=== PATIENT | female | born 1970 | race Caucasian/White ===

== ENCOUNTER 2016-10-30 20:00 | Inpatient (IN) | payer SELFPAY ==
[2016-10-30] MEDS ORDERED: Aplisol ID ONE (20:39)
[2016-10-30] MEDS ORDERED: CLINDAMYCIN-D5W 900 MG/50 ML*** 50 ML IV ONE ×2 (20:40→20:58)
--- NOTE | 2016-10-30 20:42 | ERPHSYRPT ---
- History of Present Illness Time Seen by Provider: 10/30/16 20:19 Source: patient Exam Limitations: no limitations Patient Subjective Stated Complaint: states that she has been on 3 courses of antibiotics et steriods with a dental extraction, also dx of Major - states that she feels like her lymph nodes are still swollen on the left side of the neck et has noticed in the last 3 days that her left leg has been swelling and turning red - denies any pain but noticed an increase after working on her feet today for the last 9 hours Triage Nursing Assessment: ambulatory to treatment area - steady gait - moves all extremities with equal strength. alert/oriented - pleasant affect. skin pwd - notable redness et swelling of the LLE. resps easy - non-labored Physician History: FOR THE PAST 2 MONTHS PT HAS HAD SWELLING OF THE LEFT SIDE OF HER NECK AND HAS BEEN ON ANTIBIOTICS AND STEROIDS FOR THIS, LAST ANTIBIOTIC ZITHROMAX WITH LAST DOSE 2 WEEKS AGO. PT ALSO C/O SWELLING AND REDNESS OF THE LEFT THIGH FOR THE PAST 3 DAYS WITH PAIN IN THE LEFT UPPER THIGH. YESTERDAY PT NOTICED A BRUISE ON THE MID LATERAL ASPECT OF HER LEFT THIGH AND TODAY PT HAS HAD A BI-TEMPORAL HEADACHE. Allergies/Adverse Reactions: No Known Drug Allergies Allergy (Unverified 10/30/16 20:10) Home Medications: No Reportable Medications [No Reported Medications] 10/30/16 [History] Hx Tetanus, Diphtheria Vaccination/Date Given: Yes Hx Influenza Vaccination/Date Given: No Hx Pneumococcal Vaccination/Date Given: No Immunizations Up to Date: Yes - Review of Systems Constitutional: No Fever Ears, Nose, & Throat: Other (SWOLLEN GLANDS ON LEFT SIDE OF NECK), No Throat Pain Respiratory: No Dyspnea Cardiac: No Chest Pain Abdominal/Gastrointestinal: No Abdominal Pain, No Vomiting Genitourinary Symptoms: No Dysuria Musculoskeletal: Back Pain (MILD INTERMITTENT LOW BACK PAIN FOR YEARS.), Other ( LEFT THIGH SWELLING AND REDNESS) Skin: Other (BRUISE LEFT THIGH) Neurological: Headache All Other Systems: Reviewed and Negative - Past Medical History Pertinent Past Medical History: No - Past Surgical History Past Surgical History: Yes Gastrointestinal: Cholecystectomy Female Surgical History: Tubal Ligation - Social History Smoking Status: Never smoker Exposure to second hand smoke: No Drug Use: none Patient Lives Alone: No - Female History Hx Last Menstrual Period: 2.5 weeks - Nursing Vital Signs Nursing Vital Signs: Initial Vital Signs Pulse Rate 84 Respiratory Rate 18 Blood Pressure [] 127/81 Pain Intensity 0 - Physical Exam General Appearance: alert Eye Exam: PERRL/EOMI Ears, Nose, Throat Exam: moist mucous membranes, other (TONSILS INJECTED) Neck Exam: full range of motion, lymphadenopathy (0.5 - 1.5 CM DIAMETER LYMPH NODES OVER ANTERIOR AND LEFT>RIGHT SIDE OF NECK.) Respiratory Exam: normal breath sounds, lungs clear Cardiovascular Exam: normal heart sounds Gastrointestinal/Abdomen Exam: soft, normal bowel sounds Back Exam: normal range of motion Extremity Exam: swelling (LEFT THIGH>LEFT LEG EDEMA; MILD ERYTHEMA OF LEFT THIGH ; ~ 2CM X 1CM INDURATION OVER UPPER ANTERIOMEDIAL ASPECT OF LEFT THIGH WITH MILD TENDERNESS.) Neurologic Exam: alert, cooperative SpO2 Interpretation: normal SpO2: 99 Oxygen Delivery: Room Air - Course Nursing assessment & vital signs reviewed: Yes - Radiology Ultrasound Exam Left Venous Lower Extremity Ultrasound: Other (TECH REPORT: NO DVT) Ordered Tests: Active Orders 24 hr Category Date Time Status Clean Catch Urine Specimen STAT Care 10/30/16 20:34 Active IV Insertion STAT Care 10/30/16 20:34 Active VENOUS UNILAT/LIMITED EXTREMIT [US] Stat Exams 10/30/16 20:42 Taken AMYLASE Stat Lab 10/30/16 20:50 Completed BLOOD CULTURE Stat Lab 10/30/16 21:00 Received CBC W DIFF Stat Lab 10/30/16 20:50 Completed CMP Stat Lab 10/30/16 20:50 Completed CULTURE, THROAT Stat Lab 10/30/16 21:00 Received Erythrocyte Sedimentation Rate Stat Lab 10/30/16 20:50 Completed HCG QUALITATIVE,SERUM Stat Lab 10/30/16 20:50 Completed LIPASE Stat Lab 10/30/16 20:50 Completed Lactic Acid Urgent Lab 10/30/16 20:34 Completed Major Screen Stat Lab 10/30/16 20:50 Completed STREP SCREEN-BETA A Stat Lab 10/30/16 21:00 Completed UA W/ MICROSCOPIC Stat Lab 10/30/16 21:00 Completed Medication Summary Generic Name Dose Route Start Last Admin Trade Name Freq PRN Reason Stop Dose Admin Sodium Chloride 1,000 mls @ 100 mls/hr 10/30/16 20:45 10/30/16 21:05 Sodium Chloride 0.9% 1000 Ml IV 11/29/16 20:44 100 mls/hr .Q10H JONO Administration Discontinued Medications Generic Name Dose Route Start Last Admin Trade Name Rickyq PRN Reason Stop Dose Admin Clindamycin HCl/Dextrose 50 mls @ 100 mls/hr 10/30/16 20:40 10/30/16 21:04 Clindamycin-D5w 900 Mg/50 Ml IV 10/30/16 21:09 100 mls/hr STAT ONE Administration Clindamycin HCl/Dextrose Confirm 10/30/16 20:58 Clindamycin-D5w 900 Mg/50 Ml Administered 10/30/16 20:59 Dose 50 mls @ ud IV .STK-MED ONE Clindamycin HCl/Dextrose Confirm 10/30/16 21:04 Clindamycin-D5w 900 Mg/50 Ml Administered 10/30/16 21:05 Dose 50 mls @ ud IV .STK-MED ONE Tuberculin PPD 5 unit 10/30/16 20:39 10/30/16 20:49 Aplisol ID 10/30/16 20:40 5 unit STAT ONE Administration Lab/Rad Data: Laboratory Result Diagrams 10/30/16 20:50 10/30/16 20:50 Laboratory Results 10/30/16 10/30/16 10/30/16 Range/Units 21:00 21:00 21:00 WBC (4.0-10.5) K/mm3 RBC (4.1-5.4) M/mm3 Hgb (12.0-16.0) gm/dl Hct (35-47) % MCV (78-100) fl MCH (26-32) pg MCHC (32-36) g/dl RDW (11.5-14.0) % Plt Count (150-450) K/mm3 MPV (6-9.5) fl Gran % (36.0-66.0) % Lymphocytes % (24.0-44.0) % Monocytes % (0.0-12.0) % Eosinophils % (0.00-5.0) % Basophils % (0.0-0.4) % Basophils # (0-0.4) ESR (0-20) mm/hr Sodium (136-145) mEq/L Potassium (3.5-5.1) mEq/L Chloride (98-107) mEq/L Carbon Dioxide (21-32) mEq/L Anion Gap (5-15) MEQ/L BUN (9-20) mg/dL Creatinine (0.55-1.30) mg/dl Estimated GFR ML/MIN Glucose (70-110) MG/DL Lactic Acid (0.4-2.0) Calcium (8.5-10.1) mg/dL Total Bilirubin (0.2-1.0) mg/dL AST (15-37) U/L ALT (12-78) U/L Alkaline Phosphatase (46-116) U/L Serum Total Protein (6.4-8.2) gm/dL Albumin (3.4-5.0) g/dL Amylase (25-115) U/L Lipase (73-393) U/L Serum , Qual (Negative) Ur Collection Type CLEAN CATCH Urine Color YELLOW (YELLOW) Urine Appearance CLEAR (CLEAR) Urine pH 5.5 (5-6) Ur Specific [place] 1.025 (1.005-1.025) Urine Protein NEGATIVE (Negative) Urine Glucose (UA) NEGATIVE (NEGATIVE) mg/dL Urine Ketones TRACE (NEGATIVE) Urine Nitrite NEGATIVE (NEGATIVE) Urine Bilirubin NEGATIVE (NEGATIVE) Urine Urobilinogen 0.2 (0-1) mg/dL Urine WBC (Auto) NEGATIVE (NEGATIVE) Urine RBC (Auto) TRACE NON-HEM (0-5) Emerson/ul Urine Microscopic RBC 0-2 (0-2) /HPF Ur Epithelial Cells FEW (FEW) /HPF Urine Bacteria RARE (NEGATIVE) /HPF Monoscreen (Negative) Influenza Type A Ag NEGATIVE (NEGATIVE) Influenza Type B Ag NEGATIVE (NEGATIVE) RSV (PCR) NEGATIVE (Negative) Streptococcus Screen NEGATIVE (Negative) Specimen Received 10/30/16:210910/30/16 10/30/16 10/30/16 Range/Units 20:50 20:50 20:50 WBC (4.0-10.5) K/mm3 RBC (4.1-5.4) M/mm3 Hgb (12.0-16.0) gm/dl Hct (35-47) % MCV (78-100) fl MCH (26-32) pg MCHC (32-36) g/dl RDW (11.5-14.0) % Plt Count (150-450) K/mm3 MPV (6-9.5) fl Gran % (36.0-66.0) % Lymphocytes % (24.0-44.0) % Monocytes % (0.0-12.0) % Eosinophils % (0.00-5.0) % Basophils % (0.0-0.4) % Basophils # (0-0.4) ESR 17 (0-20) mm/hr Sodium 140 (136-145) mEq/L Potassium 3.7 (3.5-5.1) mEq/L Chloride 103 (98-107) mEq/L Carbon Dioxide 25.2 (21-32) mEq/L Anion Gap 15.5 H (5-15) MEQ/L BUN 11 (9-20) mg/dL Creatinine 0.90 (0.55-1.30) mg/dl Estimated GFR > 60 ML/MIN Glucose 88 (70-110) MG/DL Lactic Acid (0.4-2.0) Calcium 8.8 (8.5-10.1) mg/dL Total Bilirubin 0.5 (0.2-1.0) mg/dL AST 17 (15-37) U/L ALT 15 (12-78) U/L Alkaline Phosphatase 75 (46-116) U/L Serum Total Protein 7.2 (6.4-8.2) gm/dL Albumin 3.7 (3.4-5.0) g/dL Amylase 20 L (25-115) U/L Lipase 84 (73-393) U/L Serum , Qual NEGATIVE (Negative) Ur Collection Type Urine Color (YELLOW) Urine Appearance (CLEAR) Urine pH (5-6) Ur Specific [place] (1.005-1.025) Urine Protein (Negative) Urine Glucose (UA) (NEGATIVE) mg/dL Urine Ketones (NEGATIVE) Urine Nitrite (NEGATIVE) Urine Bilirubin (NEGATIVE) Urine Urobilinogen (0-1) mg/dL Urine WBC (Auto) (NEGATIVE) Urine RBC (Auto) (0-5) Emerson/ul Urine Microscopic RBC (0-2) /HPF Ur Epithelial Cells (FEW) /HPF Urine Bacteria (NEGATIVE) /HPF Monoscreen POSITIVE (Negative) Influenza Type A Ag (NEGATIVE) Influenza Type B Ag (NEGATIVE) RSV (PCR) (Negative) Streptococcus Screen (Negative) Specimen Received 10/30/16 10/30/16 Range/Units 20:50 20:34 WBC 10.1 (4.0-10.5) K/mm3 RBC 4.49 (4.1-5.4) M/mm3 Hgb 10.5 L (12.0-16.0) gm/dl Hct 34.2 L (35-47) % MCV 76.2 L (78-100) fl MCH 23.3 L (26-32) pg MCHC 30.7 L (32-36) g/dl RDW 19.3 H (11.5-14.0) % Plt Count 190 (150-450) K/mm3 MPV 9.7 H (6-9.5) fl Gran % 74.0 H (36.0-66.0) % Lymphocytes % 12.1 L (24.0-44.0) % Monocytes % 8.7 (0.0-12.0) % Eosinophils % 4.9 (0.00-5.0) % Basophils % 0.3 (0.0-0.4) % Basophils # 0.03 (0-0.4) ESR (0-20) mm/hr Sodium (136-145) mEq/L Potassium (3.5-5.1) mEq/L Chloride (98-107) mEq/L Carbon Dioxide (21-32) mEq/L Anion Gap (5-15) MEQ/L BUN (9-20) mg/dL Creatinine (0.55-1.30) mg/dl Estimated GFR ML/MIN Glucose (70-110) MG/DL Lactic Acid 0.9 (0.4-2.0) Calcium (8.5-10.1) mg/dL Total Bilirubin (0.2-1.0) mg/dL AST (15-37) U/L ALT (12-78) U/L Alkaline Phosphatase (46-116) U/L Serum Total Protein (6.4-8.2) gm/dL Albumin (3.4-5.0) g/dL Amylase (25-115) U/L Lipase (73-393) U/L Serum , Qual (Negative) Ur Collection Type Urine Color (YELLOW) Urine Appearance (CLEAR) Urine pH (5-6) Ur Specific [place] (1.005-1.025) Urine Protein (Negative) Urine Glucose (UA) (NEGATIVE) mg/dL Urine Ketones (NEGATIVE) Urine Nitrite (NEGATIVE) Urine Bilirubin (NEGATIVE) Urine Urobilinogen (0-1) mg/dL Urine WBC (Auto) (NEGATIVE) Urine RBC (Auto) (0-5) Emerson/ul Urine Microscopic RBC (0-2) /HPF Ur Epithelial Cells (FEW) /HPF Urine Bacteria (NEGATIVE) /HPF Monoscreen (Negative) Influenza Type A Ag (NEGATIVE) Influenza Type B Ag (NEGATIVE) RSV (PCR) (Negative) Streptococcus Screen (Negative) Specimen Received - Progress Discussed with : Alvarado (OBS - [id number]) - Departure Time of Disposition: 22:38 Departure Disposition: Observation Clinical Impression: CELLULITIS OF THE LEFT THIGH, LYMPHADENITIS, INFECTIOUS MONONUCLEOSIS, TONSILLITIS Condition: Stable Critical Care Time: No Referrals: SHANE GUTIERREZ [Primary Care Provider] -
[2016-10-30] MEDS ORDERED: Sodium Chloride 0.9% 1000 ML 1,000 ML IV SCH (20:45)
[2016-10-30] MEDS ORDERED: Sodium Chloride 0.9% 1000 ML 1,000 ML ONE (20:58)
[2016-10-30] MEDS ORDERED: [UNRECOGNIZED DRUG - OTHER] IV ONE (21:04)
[2016-10-30] MEDS ORDERED: Sodium Chloride 0.9% 1000 ML 0 ML ONE (21:04)
[2016-10-30 21:12] LABS: BASOPHIL % 0.3 % (0.0-0.4); Eosinophil % 4.9 % (0.00-5.0); Lymphocytes % 12.1 % (24.0-44.0); Mean Cell Volume 76.2 fl (78-100); Mean Platelet Volume 9.7 fl (6-9.5); Monocytes % 8.7 % (0.0-12.0); Platelet Count 190 K/mm3 (150-450); Red Blood Count 4.49 M/mm3 (4.1-5.4); Red Cell Distribution Width 19.3 % (11.5-14.0); White Blood Count 10.1 K/mm3 (4.0-10.5)
[2016-10-30 21:23] LABS: Mean Corpuscular Hemoglobin 23.3 pg (26-32)
[2016-10-30 21:31] LABS: Bacteria RARE /HPF (NEGATIVE); COMPLETE URINE MICROSCOPIC? YES; Collection Type CLEAN CATCH; Epithelial Cells FEW /HPF (FEW); Ph 5.5 (5-6)
[2016-10-30 21:33] LABS: ALBUMIN 3.7 g/dL (3.4-5.0); ALKALINE PHOSPHATASE 75 U/L (46-116); ANION GAP 15.5 MEQ/L (5-15); BILIRUBIN,TOTAL 0.5 mg/dL (0.2-1.0); BLOOD UREA NITROGEN 11 mg/dL (9-20); CHLORIDE 103 mEq/L (98-107); Carbon Dioxide 25.2 mEq/L (21-32); Glucose 88 MG/DL (70-110); LIPASE 84 U/L (73-393); Potassium 3.7 mEq/L (3.5-5.1); SGOT/AST 17 U/L (15-37); SGPT/ALT 15 U/L (12-78); SODIUM 140 mEq/L (136-145); Total Protein 7.2 gm/dL (6.4-8.2)
[2016-10-31] MEDS: Cleocin Phosphate IV 600 MG/4 ML IV SCH ×2 (00:50→05:39)
[2016-10-31] MEDS ORDERED: CLINDAMYCIN-D5W 600 MG/50 ML*** 50 ML IV ONE ×2 (00:50→05:05)
[2016-10-31] MEDS: Sodium Chloride 0.9% 1000 ML 1,000 ML IV SCH (03:11)
[2016-10-31 05:55] LABS: Mean Cell Volume 77.5 fl (78-100); Mean Corpuscular Hemoglobin 23.4 pg (26-32); Mean Platelet Volume 9.6 fl (6-9.5); Platelet Count 173 K/mm3 (150-450); Red Blood Count 4.31 M/mm3 (4.1-5.4); Red Cell Distribution Width 19.2 % (11.5-14.0); White Blood Count 8.3 K/mm3 (4.0-10.5)
[2016-10-31] MEDS: Phenergan 25 MG INJ IV PRN (06:00)
[2016-10-31 06:21] LABS: BAND 1 % (0.0-2.0); Eosinophil 3 % (0.00-3.0); Total Cells Counted 100
[2016-10-31 06:22] LABS: ANISOCYTOSIS 1+; Platelet Estimate NORMAL (NORMAL); Toxic Granulation 1+
[2016-10-31 06:28] LABS: ALBUMIN 2.9 g/dL (3.4-5.0); ALKALINE PHOSPHATASE 59 U/L (46-116); BILIRUBIN,TOTAL 0.3 mg/dL (0.2-1.0); BLOOD UREA NITROGEN 13 mg/dL (9-20); CHLORIDE 107 mEq/L (98-107); Carbon Dioxide 26.9 mEq/L (21-32); Glucose 94 MG/DL (70-110); Potassium 3.6 mEq/L (3.5-5.1); SGOT/AST 17 U/L (15-37); SGPT/ALT 14 U/L (12-78); SODIUM 141 mEq/L (136-145)
[2016-10-31] MEDS: DILAUDID 2 MG INJECTION IV PRN ×2 (07:26→21:08)
[2016-10-31] MEDS ORDERED: PHARMACY DOSING REQUIRED: VANCOMYCIN IV ONE (08:20)
[2016-10-31] MEDS: solu-MEDROL 125 MG IV SCH ×3 (08:58→19:18)
[2016-10-31] MEDS: ENOXAPARIN SODIUM SQ SCH (09:00)
--- NOTE | 2016-10-31 09:32 | HP ---
CHIEF COMPLAINT: Left leg swelling. HISTORY OF PRESENT ILLNESS: The patient is a 45 year-old white female who had been diagnosed with mononucleosis about three to four weeks ago. The patient had been treated with five day course of steroids and had been on antibiotics a couple different times. The patient noticed she started having swelling in the left leg about four days ago which has been progressively getting a little bit worse until yesterday when she was at work all day. When she came home there was greater swelling in the leg. She presented herself to the emergency room where leg was found to be swollen, red and somewhat tender. The patient was admitted to the hospital with diagnosis of cellulitis and IV antibiotic treatment. PAST MEDICAL/SURGICAL HISTORY: Again significant for recent mononucleosis. She has history of cholecystectomy, tubal ligation. HOME MEDICATIONS: On no usual medications at home. ALLERGIES: NKDA. PHYSICAL EXAMINATION: Revealed a well nourished, well developed 45 year-old white female in mild to moderate distress currently due to the leg swelling. Her most recent vital signs showed temperature 98.2F, pulse 82, respiratory rate 15, blood pressure 121/53. O2 saturation 97% on room air. HEENT: Normocephalic, atraumatic. Pupils equal round reactive to light. Extraocular movements intact. Oropharynx is pink and moist. NECK: Supple without lymphadenopathy, thyromegaly or JVD. CHEST: Clear to auscultation with good air movement bilaterally. HEART: Regular rate and rhythm without murmurs, rubs or gallops. ABDOMEN: Soft, nontender, nondistended without hepatosplenomegaly or masses. EXTREMITIES: Without clubbing or cyanosis. The patient is noted to have swelling from the crease of thigh all the way to the tips of the toes on the left leg which is minimally reddened compared to the right. There is no significant increase in warmth as well. NEUROLOGIC: The patient is alert and oriented x3 with no focal deficits were noted. LAB DATA AND TESTS: Thus far show a metabolic panel which is essentially normal. She had CBC showing a white blood cell count of 8,300. She has microcytic indices with hemoglobin of 10.1, PLT count 173,000. She has minimal left shift with one band and 76 polys. Sedimentation rate is 17. The patient did have a venous Doppler which was negative for deep venous thrombosis. ASSESSMENT: A patient with mononucleosis and now lymph edema in the left thigh from swollen lymph nodes in left groin area. The patient has been admitted for antibiotic treatment for possibly developing cellulitis. She has been placed on Clindamycin. We will add Vancomycin as well as giving her high dose of steroids to try to help reduce the inflammation in the lymph nodes in the groin area in order to try to help alleviate the swelling in the leg. She is being restricted to bed rest except getting up to bathroom to try to help the lymph edema. I will check the patient's labs in the morning. She has also been placed on Lovenox for deep venous thrombosis prophylaxis.
--- NOTE | 2016-10-31 09:35 | XRAY ---
Indication: Left leg swelling and pain. Two-dimensional sonogram and color Doppler imaging of the major venous vessels of the left leg was performed. Comparison: None No thrombus seen in the examined deep venous vessels of the left leg including greater saphenous vein. Veins demonstrate normal compressibility. Venous waveforms are normal with and without augmentation. There are incidental multiple prominent lymph nodes in the groin and upper thigh, largest 3.7 x 5.7 cm. Impression: Left leg negative for DVT. Incidental inguinal and upper thigh lymphadenopathy of uncertain etiology. Comment: Preliminary report was given.
[2016-10-31] MEDS ORDERED: ENOXAPARIN SODIUM SQ SCH (10:00)
[2016-10-31] MEDS ORDERED: VANCOCIN 1 GM VIAL*** 1.75 GM in Sodium Chloride 0.9% 500 ML 500 ML IV ONE (10:00)
[2016-10-31] MEDS: CLINDAMYCIN-D5W 600 MG/50 ML*** 50 ML IV SCH ×3 (13:33→23:59)
[2016-10-31] MEDS: VANCOCIN 1 GM VIAL*** 1.25 GM in Sodium Chloride 0.9% 250 ML 250 ML IV SCH (21:09)
[2016-11-01] MEDS: Sodium Chloride 0.9% 1000 ML 1,000 ML IV SCH (03:03)
[2016-11-01 05:52] LABS: Mean Cell Volume 76.1 fl (78-100); Mean Corpuscular Hemoglobin 23.2 pg (26-32); Platelet Count 205 K/mm3 (150-450); Red Blood Count 4.56 M/mm3 (4.1-5.4); Red Cell Distribution Width 19.2 % (11.5-14.0); White Blood Count 15.2 K/mm3 (4.0-10.5)
[2016-11-01] MEDS: CLINDAMYCIN-D5W 600 MG/50 ML*** 50 ML IV SCH ×3 (05:56→17:32)
[2016-11-01] MEDS: solu-MEDROL 125 MG IV SCH ×2 (05:57)
[2016-11-01 06:23] LABS: ALBUMIN 3.2 g/dL (3.4-5.0); ALKALINE PHOSPHATASE 67 U/L (46-116); ANION GAP 13.7 MEQ/L (5-15); BILIRUBIN,TOTAL 0.3 mg/dL (0.2-1.0); BLOOD UREA NITROGEN 11 mg/dL (9-20); CHLORIDE 108 mEq/L (98-107); Carbon Dioxide 25.2 mEq/L (21-32); Glucose 145 MG/DL (70-110); Potassium 3.9 mEq/L (3.5-5.1); SGOT/AST 14 U/L (15-37); SGPT/ALT 14 U/L (12-78); SODIUM 143 mEq/L (136-145)
[2016-11-01] MEDS: TYLENOL 325 MG PO PRN ×2 (07:24→19:55)
[2016-11-01] MEDS ORDERED: TORAdol 30 mg Injection IV ONE (08:46)
[2016-11-01] MEDS: Phenergan 25 MG INJ IV PRN ×2 (09:02→17:32)
--- NOTE | 2016-11-01 09:03 | PCM.NOTE ---
Date and Time: 11/01/16856 Subjective Assessment: she is nervous on the high dose steroids and has a headache. she had an infected tooth on the left lower side for several months and had it removed about 1 month ago and has had severe swelling on the left neck for 3 to 4 months with minimal improvement and just developed the left inguinal adenopathy and swelling and pain over the last 1 week and it is improving a little today but tingling feeling in her leg. She has had night sweats and chills for the last few months. denies any alcohol or drug use Objective Exam General Appearance: obese Neurologic Exam: other (anxious tremor bilateral tearful at times) Skin Exam: warm, dry, No petechiae, No jaundice Eye Exam: No scleral icterus, No pale conjunctivae Ears, Nose, Throat Exam: moist mucous membranes Neck Exam: non-tender, supple, other (large firm lymph nodes left anterior cervical chain largest about 4cm area of induration no warmth. the prevous abscessed tooth on left lower mandible is well healed after extraction) Respiratory Exam: normal breath sounds, lungs clear Cardiovascular Exam: regular rate/rhythm, normal heart sounds, No irregular Gastrointestinal/Abdomen Exam: soft, normal bowel sounds, No tenderness Extremity Exam: normal inspection, other (left inguinal large firm warm tender largest about 6cm lypmphadenopathy with distal 2+ pitting edema.) OBJECTIVE DATA Vital Signs: Vital Signs - 24 hr Temp Pulse Resp BP Pulse Ox 11/01/16 07:16 98.1 F 81 18 115/59 96 11/01/16 04:00 98.7 F 84 16 117/61 93 L 10/31/16 23:59 98.1 F 78 17 98/56 92 L 10/31/16 20:00 98.7 F 84 16 119/62 94 L 10/31/16 16:00 98.5 F 80 17 121/71 93 L 10/31/16 12:00 98.2 F 70 18 108/60 96 Pain Assessment - Last Documented Pain Intensity 9 Pain Scale Used 0-10 Pain Scale Intake and Output: Intake & Output 10/29/16 10/30/16 10/31/16 11/01/16 11:59 11:59 11:59 11:59 Intake Total 720 1600 Output Total 1600 Balance 720 0 Weight 85.82 kg 85.774 kg Lab Results: Lab Results-Last 24 Hours 11/01/16 11/01/16 Range/Units 05:12 05:12 WBC 15.2 H (4.0-10.5) K/mm3 RBC 4.56 (4.1-5.4) M/mm3 Hgb 10.6 L (12.0-16.0) gm/dl Hct 34.7 L (35-47) % MCV 76.1 L (78-100) fl MCH 23.2 L (26-32) pg MCHC 30.5 L (32-36) g/dl RDW 19.2 H (11.5-14.0) % Plt Count 205 (150-450) K/mm3 MPV 10.0 H (6-9.5) fl Sodium 143 (136-145) mEq/L Potassium 3.9 (3.5-5.1) mEq/L Chloride 108 H (98-107) mEq/L Carbon Dioxide 25.2 (21-32) mEq/L Anion Gap 13.7 (5-15) MEQ/L BUN 11 (9-20) mg/dL Creatinine 0.84 (0.55-1.30) mg/dl Estimated GFR > 60 ML/MIN Glucose 145 H (70-110) MG/DL Calcium 8.4 L (8.5-10.1) mg/dL Total Bilirubin 0.3 (0.2-1.0) mg/dL AST 14 L (15-37) U/L ALT 14 (12-78) U/L Alkaline Phosphatase 67 (46-116) U/L Serum Total Protein 7.0 (6.4-8.2) gm/dL Albumin 3.2 L (3.4-5.0) g/dL Assessment/Plan (1) Cervical lymphadenopathy Current Visit: Yes Status: Acute Assessment & Plan: concern for lack of improvement over the last 4 months as well as night fevers continue the clinda/vanc for now as seems to be improving however if not showing improvement we discussed with patient surgical consultation for excision biopsy. Code(s): R59.0 - LOCALIZED ENLARGED LYMPH NODES (2) Inguinal lymphadenopathy Current Visit: Yes Status: Acute Code(s): R59.0 - LOCALIZED ENLARGED LYMPH NODES (3) Cellulitis Current Visit: Yes Status: Acute Code(s): L03.90 - CELLULITIS, UNSPECIFIED (4) Headache Current Visit: Yes Status: Acute Assessment & Plan: will give 1 time dose of toradol with phenergan reduce the steroids with the tremors and add famotidine for gi ppx on lovenox for dvt ppx. Code(s): R51 - HEADACHE
[2016-11-01] MEDS: VANCOCIN 1 GM VIAL*** 1.25 GM in Sodium Chloride 0.9% 250 ML 250 ML IV SCH ×2 (10:03→22:14)
[2016-11-01] MEDS: Pepcid 20 MG PO SCH ×2 (10:03→22:14)
[2016-11-01] MEDS: ENOXAPARIN SODIUM SQ SCH (10:03)
[2016-11-01] MEDS: solu-MEDROL 40 MG IV SCH ×2 (11:49→17:33)
[2016-11-01] MEDS ORDERED: TORAdol 30 mg Injection IV PRN (17:22)
[2016-11-01] MEDS: DILAUDID 2 MG INJECTION IV PRN (22:24)
[2016-11-02] MEDS: solu-MEDROL 40 MG IV SCH ×5 (00:03→23:34)
[2016-11-02] MEDS: CLINDAMYCIN-D5W 600 MG/50 ML*** 50 ML IV SCH ×5 (00:03→23:37)
[2016-11-02] MEDS ORDERED: TROUGH DRUG LEVELS IJ ONE (09:30)
[2016-11-02] MEDS: ENOXAPARIN SODIUM SQ SCH (09:35)
[2016-11-02] MEDS: DILAUDID 2 MG INJECTION IV PRN ×2 (09:36→21:32)
[2016-11-02] MEDS: Pepcid 20 MG PO SCH ×2 (09:36→21:37)
[2016-11-02] MEDS: VANCOCIN 1 GM VIAL*** 1.25 GM in Sodium Chloride 0.9% 250 ML 250 ML IV SCH ×2 (09:52→21:33)
--- NOTE | 2016-11-02 10:47 | PCM.NOTE ---
Date and Time: 11/02/16 1043 Subjective Assessment: Feeling better today no headache today she was still having pain in the leg and just had pain medication that is helping swelling is decreaing in the leg no abdominal pain. She feels the lymph nodes are a little smaller and less firm in her neck and groin. She feels a little nervous on the steroids. Objective Exam General Appearance: no apparent distress Neurologic Exam: alert, oriented x 3, cooperative Skin Exam: warm, dry Eye Exam: No scleral icterus, No pale conjunctivae Neck Exam: normal inspection Lymphatic Exam: adenopathy, inguinal node tender (L), other (left anterior cervical large nodes less tender slighly less firm today largest about 4cm left inguinal adenopathy largest about 6cm less tender less firm today), No axilla node tender (L), No axilla node tender (R) Respiratory Exam: normal breath sounds, lungs clear Cardiovascular Exam: regular rate/rhythm, normal heart sounds, No edema Gastrointestinal/Abdomen Exam: soft, normal bowel sounds, No tenderness Extremity Exam: other (left lower extremity edema improved 1+), No sindy's sign OBJECTIVE DATA Vital Signs: Vital Signs - 24 hr Temp Pulse Resp BP Pulse Ox 11/02/16 07:13 98.1 F 69 18 114/58 98 11/02/16 04:00 98.3 F 65 20 107/53 95 11/02/16 00:00 98.3 F 76 20 113/65 96 11/01/16 19:55 98.4 F 85 18 121/73 95 11/01/16 15:58 97.6 F 78 18 132/66 97 11/01/16 11:59 97.8 F 80 20 135/60 97 Pain Assessment - Last Documented Pain Intensity 6 Pain Scale Used 0-10 Pain Scale Intake and Output: Intake & Output 10/30/16 10/31/16 11/01/16 11/02/16 11:59 11:59 11:59 11:59 Intake Total 1720 1320 Output Total 1600 1800 Balance 120 -480 Weight 85.774 kg 86.636 kg Assessment/Plan (1) Cervical lymphadenopathy Current Visit: Yes Status: Acute Assessment & Plan: continue steroids, vanc, clinda for this and inguinal adenopathy discussed surgical excision biopsy if not improving. Code(s): R59.0 - LOCALIZED ENLARGED LYMPH NODES (2) Inguinal lymphadenopathy Current Visit: Yes Status: Acute Code(s): R59.0 - LOCALIZED ENLARGED LYMPH NODES (3) Cellulitis Current Visit: Yes Status: Acute Code(s): L03.90 - CELLULITIS, UNSPECIFIED (4) Headache Current Visit: Yes Status: Acute Code(s): R51 - HEADACHE
[2016-11-03 03:20] LABS: Mycoplasma Pneum.Ab.IgM 0.11 U/L (<=0.76)
[2016-11-03] MEDS ORDERED: CLINDAMYCIN-D5W 600 MG/50 ML*** 50 ML IV ONE (05:35)
[2016-11-03] MEDS: solu-MEDROL 40 MG IV SCH (05:41)
[2016-11-03] MEDS: CLINDAMYCIN-D5W 600 MG/50 ML*** 50 ML IV SCH (05:43)
[2016-11-03 07:36] VITALS: BP 123/70; PULSE 57; O2SAT 96
--- NOTE | 2016-11-03 08:36 | PCM.DCORD ---
- Discharge Discharge Date: 11/03/16 Disposition: Home, Self-Care Condition: Stable Prescriptions: New Clindamycin HCl [Cleocin HCl] 600 mg PO TID #42 capsule Hydrocodone/APAP 10/325 mg [[place] 10/325 MG Tablet] 1 tab PO Q4H PRN PRN #30 tablet PRN Reason: Pain Prednisone 10 mg PO UD #30 tablet Additional Instructions: Please fill your prescriptions and take as directed. You need to rest and activities as tolerated. Please be off work this week and follow up with Dr. Childers in one week. Continue measuring your legs to monitor swelling. Please call immediately if swelling becomes worse or you start running a fever or you feel you have an emergency. Use the prescription pain medication for pain. Follow up with: SHANE CHILDERS [Primary Care Provider] -
[2016-11-03] MEDS: Pepcid 20 MG PO SCH (09:27)
[2016-11-03] MEDS: VANCOCIN 1 GM VIAL*** 1.25 GM in Sodium Chloride 0.9% 250 ML 250 ML IV SCH (09:29)
[2016-11-03] MEDS: ENOXAPARIN SODIUM SQ SCH (09:38)
[2016-11-03] MEDS: DILAUDID 2 MG INJECTION IV PRN (10:17)
--- NOTE | 2016-11-03 13:13 | DS ---
DISCHARGE DIAGNOSES: 1) MONONUCLEOSIS. 2) LYMPHADENOPATHY. 3) LYMPH EDEMA IN THE LEFT LEG. 4) CELLULITIS, LEFT LOWER EXTREMITY. HISTORY: The patient is a 45 year-old white female patient diagnosed with mononucleosis. The patient has been dealing with this for the past couple of weeks. However she noted lymph nodes in the neck and in the groin particularly appeared to be swollen. She began having problems with swelling in the left lower extremity from the groin area downward. It was slightly reddened compared to the other side and slightly warm. The patient was seen in the emergency room and admitted to the hospital with the diagnosis of cellulitis. She was begun on IV Cleocin. HOSPITAL COURSE: The patient was admitted to the hospital [place] on IV Cleocin and IV fluids. We added IV Vancomycin and IV steroids. The patient after being on bed rest appeared much better with decrease in swelling of the leg. We were measuring it at mid-thigh level and it reduced 6 cm in circumference over the ensuing couple of days. The patient's laboratory studies otherwise showed influenza A/B and respiratory syncytial virus to be negative. Lactic acid 0.9. Strep screen was negative. [place] screen was positive. UA was normal. CMP was essentially normal as well with BUN 11, creatinine 0.9. Electrolytes and liver enzymes were normal. Sed rate was 17. She had a white blood cell count 8,300, hemoglobin 10.1, PLT count 173,000. There was 1 band and 76 polys noted. She had venous Doppler performed of left lower extremity which was negative for evidence of deep venous thrombosis. The patient was felt to be ready for discharge home by the morning of 11/03/2016. She was discharged back home on Cleocin 600 mg t.i.d. for a week. She will be placed on prednisone 30 mg a day for five days and 20 for 5 days and then 10 for 5 days. [place] 10/325 mg every four hours PRN for pain. She has follow up in my office in one week. She was instructed that she could be upon the leg a little bit more each day but she is to be off work until she sees me again in the office in one week.
== END 2016-11-03 11:55 | disposition home or self-care (01) | DRG 866 ==
LOC: ED 20:00 → MED SURG 22:50 → OBSVTOIN 10-31 08:30 → INTOOBSV 10-31 08:30 → OBSVTOIN 10-31 08:31
PROVIDERS: ADMIT Family Medicine; ATTEND Family Medicine
DX: B27.90 Infectious mononucleosis, unspecified without complication (principal); L03.116 Cellulitis of left lower limb; R59.0 Localized enlarged lymph nodes; M79.605 Pain in left leg; R51 Headache
CPT/HCPCS: 36000; 36415; 80053; 80202; 81000; 82150; 83605; 83690; 84703; 85025; 85027; 85652; 86308; 86738; 87040; 87070; 87430; 87631; 93971; 96360; 96361; 96365; 99285; G0378; J1170; J1650; J1885; J2550; J2920; J2930; J3370; A9270-GY

== ENCOUNTER 2016-11-28 18:39 | Inpatient (IN) | payer SELFPAY ==
[2016-11-28] MEDS ORDERED: CLINDAMYCIN-D5W 900 MG/50 ML*** 50 ML IV ONE ×2 (21:15→21:24)
[2016-11-28] MEDS ORDERED: Vancomycin 1GM/ Ns 250ML*** 250 ML IV ONE ×2 (21:15→21:25)
[2016-11-28 21:19] LABS: BASOPHIL % 0.4 % (0.0-0.4); Eosinophil % 3.7 % (0.00-5.0); Granulocytes % 74.2 % (36.0-66.0); Lymphocytes % 13.2 % (24.0-44.0); Mean Cell Volume 77.8 fl (78-100); Mean Platelet Volume 9.9 fl (6-9.5); Monocytes % 8.5 % (0.0-12.0); Platelet Count 219 K/mm3 (150-450); Red Cell Distribution Width 18.8 % (11.5-14.0); White Blood Count 7.8 K/mm3 (4.0-10.5)
[2016-11-28 21:22] LABS: Mean Corpuscular Hemoglobin 23.5 pg (26-32)
[2016-11-28] MEDS ORDERED: Sodium Chloride 0.9% 1000 ML 1,000 ML ONE (21:25)
[2016-11-28] MEDS: Sodium Chloride 0.9% 1000 ML 1,000 ML IV SCH (21:31)
--- NOTE | 2016-11-28 21:38 | ERPHSYRPT ---
- History of Present Illness Time Seen by Provider: 11/28/16 19:00 Source: patient, family Exam Limitations: no limitations Patient Subjective Stated Complaint: PT REPORTS SWELLING-REDNESS ET PAIN TO LEFT LEG-STATES THAT SHE HAD A SIMILAR EPISODE DX WITH CELLULITIS ET LYMPHADEMA- FINISHED MEDS [facility]ARRY 5 DAYS AGO Triage Nursing Assessment: PT PINK WARM ET DRY-RESP NONLAOBRED-REDNESS ET SWELLING NOTED TO LEFT UPPER LEG-PEDAL PULSE REGULAR ET STRONG-PT AMBULATORY TO ED ROOM Physician History: Pt. completed course of Vancomycin and Clindamycin 5 days ago for "Staph" infection/cellulitis LLE. She went to work at [employer] today with swelling, erythema of left thigh. Presents with 5 cm knot to left femoral area tonight. Occurred: this afternoon Quality: constant Severity of Pain-Max: severe Severity of Pain-Current: severe Lower Extremities Pain: hip: left, leg: left, thigh: left Modifying Factors: Improves With: movement Allergies/Adverse Reactions: No Known Drug Allergies Allergy (Verified 11/28/16 18:49) Hx Tetanus, Diphtheria Vaccination/Date Given: No Hx Influenza Vaccination/Date Given: No Hx Pneumococcal Vaccination/Date Given: No Immunizations Up to Date: Yes - Review of Systems Constitutional: No Symptoms Eyes: No Symptoms Ears, Nose, & Throat: No Symptoms Respiratory: No Symptoms Cardiac: No Symptoms Abdominal/Gastrointestinal: No Symptoms Musculoskeletal: Myalgias Skin: Cellulitis Neurological: No Symptoms Psychological: No Symptoms Endocrine: No Symptoms Hematologic/Lymphatic: No Symptoms - Past Medical History Pertinent Past Medical History: Yes Neurological History: No Pertinent History ENT History: No Pertinent History Cardiac History: No Pertinent History Respiratory History: No Pertinent History Endocrine Medical History: No Pertinent History Musculoskeletal History: No Pertinent History GI Medical History: Gallbladder Disease History: No Pertinent History Psycho-Social History: No Pertinent History Female Reproductive Disorders: No Pertinent History - Past Surgical History Past Surgical History: Yes Neuro Surgical History: No Pertinent History Cardiac: No Pertinent History Respiratory: No Pertinent History Gastrointestinal: Cholecystectomy Genitourinary: No Pertinent History Musculoskeletal: No Pertinent History Female Surgical History: Tubal Ligation - Social History Smoking Status: Never smoker Exposure to second hand smoke: No Drug Use: none Patient Lives Alone: No - Female History Hx Last Menstrual Period: 2 WKS AGO - Nursing Vital Signs Nursing Vital Signs: Initial Vital Signs Temperature 98.1 F Temperature Source Oral Pulse Rate 86 Respiratory Rate 16 Blood Pressure [Right Arm] 109/67 Pain Intensity 7 - Physical Exam General Appearance: moderate distress Eyes, Ears, Nose, Throat Exam: normal ENT inspection, pharynx normal Neck Exam: normal inspection, non-tender, supple, full range of motion Cardiovascular/Respiratory Exam: chest non-tender, normal breath sounds, regular rate/rhythm, heart sounds normal Gastrointestinal/Abdominal Exam: non-tender, soft, no organomegaly Back Exam: normal inspection, normal range of motion Hips Exam: left: nodules, pain, soft tissue tenderness, swelling Legs Exam: left leg: nodules, pain, soft tissue tenderness, swelling, other ( erythema) Ankle Exam: bilateral ankle: non-tender, normal inspection, normal range of motion, no evidence of injury DTR - Lower Extremities Exam: ankle (R): 3+, ankle (L): 3+ Neuro/Tendon Exam: normal sensation, normal motor functions, normal tendon functions, responds to pain Mental Status Exam: alert, oriented x 3, cooperative Skin Exam: warm, dry SpO2 Interpretation: normal SpO2: 97 Oxygen Delivery: Room Air - Course Nursing assessment & vital signs reviewed: Yes - Radiology Ultrasound Exam Venous Lower Extremity Ultrasound: tele radiology report (No DVT. [address] Left femoral and lower pelvic. These appear to be complex.) Ordered Tests: Active Orders 24 hr Category Date Time Status IV Insertion STAT Care 11/28/16 19:28 Active IV Insertion STAT Care 11/28/16 21:14 Active VENOUS UNILAT/LIMITED EXTREMIT [US] Stat Exams 11/28/16 19:27 Taken BLOOD CULTURE Stat Lab 11/28/16 21:25 Received CBC W DIFF Stat Lab 11/28/16 20:00 Completed CMP Stat Lab 11/28/16 20:00 Received Lactic Acid Urgent Lab 11/28/16 21:14 Ordered Medication Summary Generic Name Dose Route Start Last Admin Trade Name Freq PRN Reason Stop Dose Admin Sodium Chloride 1,000 mls @ 100 mls/hr 11/28/16 21:15 11/28/16 21:31 Sodium Chloride 0.9% 1000 Ml IV 12/28/16 21:14 100 mls/hr .Q10H JONO Administration Clindamycin HCl/Dextrose 50 mls @ 100 mls/hr 11/28/16 21:15 11/28/16 21:31 Clindamycin-D5w 900 Mg/50 Ml IV 11/28/16 21:44 100 mls/hr STAT ONE Administration Vancomycin HCl 250 mls @ 167 mls/hr 11/28/16 21:15 11/28/16 21:31 Vancomycin 1gm/ Ns 250ml IV 11/28/16 22:44 167 mls/hr STAT ONE Administration Discontinued Medications Generic Name Dose Route Start Last Admin Trade Name Luigi PRN Reason Stop Dose Admin Clindamycin HCl/Dextrose Confirm 11/28/16 21:24 Clindamycin-D5w 900 Mg/50 Ml Administered 11/28/16 21:25 Dose 50 mls @ ud IV .STK-MED ONE Vancomycin HCl Confirm 11/28/16 21:25 Vancomycin 1gm/ Ns 250ml Administered 11/28/16 21:26 Dose 250 mls @ ud IV .STK-MED ONE Lab/Rad Data: Laboratory Result Diagrams 11/28/16 20:00 Laboratory Results 11/28/16 Range/Units 20:00 WBC 7.8 (4.0-10.5) K/mm3 RBC 4.50 (4.1-5.4) M/mm3 Hgb 10.6 L (12.0-16.0) gm/dl Hct 35.0 (35-47) % MCV 77.8 L (78-100) fl MCH 23.5 L (26-32) pg MCHC 30.3 L (32-36) g/dl RDW 18.8 H (11.5-14.0) % Plt Count 219 (150-450) K/mm3 MPV 9.9 H (6-9.5) fl Gran % 74.2 H (36.0-66.0) % Lymphocytes % 13.2 L (24.0-44.0) % Monocytes % 8.5 (0.0-12.0) % Eosinophils % 3.7 (0.00-5.0) % Basophils % 0.4 (0.0-0.4) % Basophils # 0.03 (0-0.4) - Progress Progress: improved Discussed with Dr.: Childers Counseled pt/family regarding: lab results, diagnosis, need for follow-up, rad results - Departure Time of Disposition: 21:40 Departure Disposition: Observation Clinical Impression: Adenopathy Cellulitis Qualifiers: Site of cellulitis: extremity Site of cellulitis of extremity: lower extremity Laterality: left Qualified Code(s): L03.116 - Cellulitis of left lower limb Condition: Stable Critical Care Time: Yes Critical Care Time(excluding separately billable procedures): 75-104 minutes
[2016-11-28 21:49] LABS: ALBUMIN 3.7 g/dL (3.4-5.0); ALKALINE PHOSPHATASE 63 U/L (46-116); ANION GAP 14.1 MEQ/L (5-15); BILIRUBIN,TOTAL 0.3 mg/dL (0.2-1.0); BLOOD UREA NITROGEN 10 mg/dL (9-20); CHLORIDE 103 mEq/L (98-107); Carbon Dioxide 26.5 mEq/L (21-32); Glucose 133 MG/DL (70-110); Potassium 3.2 mEq/L (3.5-5.1); SGOT/AST 22 U/L (15-37); SGPT/ALT 22 U/L (12-78); SODIUM 140 mEq/L (136-145); Total Protein 7.1 gm/dL (6.4-8.2)
[2016-11-28] MEDS ORDERED: Klor Con 10 MEQ PO ONE ×3 (21:56→22:11)
[2016-11-28] MEDS: Norco 10/325 MG Tablet PO PRN (23:23)
[2016-11-29] MEDS: CLINDAMYCIN-D5W 900 MG/50 ML*** 50 ML IV SCH ×3 (05:28→18:05)
[2016-11-29 05:37] LABS: BASOPHIL % 0.6 % (0.0-0.4); Eosinophil % 4.8 % (0.00-5.0); Granulocytes % 63.9 % (36.0-66.0); Lymphocytes % 16.9 % (24.0-44.0); Mean Cell Volume 78.4 fl (78-100); Mean Platelet Volume 9.8 fl (6-9.5); Monocytes % 13.8 % (0.0-12.0); Platelet Count 188 K/mm3 (150-450); Red Blood Count 4.08 M/mm3 (4.1-5.4); Red Cell Distribution Width 18.6 % (11.5-14.0); White Blood Count 5.2 K/mm3 (4.0-10.5)
[2016-11-29 05:49] LABS: Mean Corpuscular Hemoglobin 23.7 pg (26-32)
[2016-11-29 05:54] LABS: ANION GAP 11.9 MEQ/L (5-15); BLOOD UREA NITROGEN 9 mg/dL (9-20); CHLORIDE 108 mEq/L (98-107); Carbon Dioxide 26.7 mEq/L (21-32); Glucose 96 MG/DL (70-110); Potassium 4.2 mEq/L (3.5-5.1); SODIUM 142 mEq/L (136-145)
[2016-11-29] MEDS ORDERED: CLINDAMYCIN-D5W 900 MG/50 ML*** 50 ML IV SCH (06:00)
--- NOTE | 2016-11-29 08:13 | XRAY ---
Indication: Thigh swelling with palpable lumps. Cellulitis. Two-dimensional sonogram and color Doppler imaging of the major venous vessels of the left leg was performed. Comparison: October 30, 2016. Again no thrombus seen in the examined deep venous vessels of the left leg including greater saphenous vein. Veins demonstrate normal compressibility. Venous waveforms are normal with and without augmentation. There are again multiple prominent lymph nodes in the pelvis, groin, and upper thigh, again largest 3.6 x 5.3 cm in the groin. Impression: Left leg again negative for DVT. Again lymphadenopathy presumed related to known cellulitis. Comment: Preliminary report was given.
[2016-11-29] MEDS: Sodium Chloride 0.9% 1000 ML 1,000 ML IV SCH (08:25)
[2016-11-29] MEDS: Norco 10/325 MG Tablet PO PRN ×3 (08:52→21:19)
[2016-11-29] MEDS ORDERED: PHARMACY DOSING REQUIRED: VANCOMYCIN IV ONE (09:34)
[2016-11-29] MEDS: PROTONIX 40 MG IV IV SCH (09:40)
[2016-11-29] MEDS ORDERED: VANCOCIN 1 GM VIAL*** 1 GM in Sodium Chloride 0.9% 250 ML 250 ML IV SCH ×2 (10:00)
[2016-11-29] MEDS ORDERED: ENOXAPARIN SODIUM SQ SCH (10:00)
[2016-11-29] MEDS: VANCOCIN 1 GM VIAL*** 1.25 GM in Sodium Chloride 0.9% 250 ML 250 ML IV SCH ×2 (10:56→22:17)
[2016-11-29] MEDS ORDERED: Heparin 5000 UNITS/0.5 ML (HIGH RISK MED) SQ SCH (14:00)
--- NOTE | 2016-11-29 14:28 | HP ---
CHIEF COMPLAINT: Left lower extremity thigh area warmth, redness and pain. HISTORY OF PRESENT ILLNESS: The patient is a 45 year-old white female who has history of cellulitis in the left lower extremity in the thigh area. The patient underwent treatment with Vancomycin and clindamycin with good results. The patient had treated for about 1 week as an outpatient. She stopped the medications approximately 4 days ago, and had recurrence of the redness, warmth and swelling in the left thigh. She re-presented to the emergency room, and was subsequently admitted to the hospital again for further evaluation and treatment. The patient was noted on evaluation in the emergency room for deep vein thrombosis which was negative, however, lymph nodes were noted to be quite large and concerning. PAST MEDICAL HISTORY: Otherwise significant for tubal ligation, cholecystectomy. HOME MEDICATIONS: No routine medications otherwise. ALLERGIES: She reported no known drug allergies. PHYSICAL EXAMINATION: GENERAL: Mildly obese 45 year-old white female currently in no significant distress. VITAL SIGNS: Recently showed a temperature of 97.9, pulse 80, respiratory 18, blood pressure 103/58, O2 saturations 96% on room air. HEENT: Normocephalic and atraumatic, pupils are equal, round, reactive to light, extraocular muscles intact. Oropharynx is pink and moist. NECK: Supple without lymphadenopathy, thyromegaly or JVD. CHEST: Clear to auscultation, good air movement bilaterally. HEART: Regular rate and rhythm without significant murmurs, rubs or gallops. ABDOMEN: Soft, nontender, nondistended without hepatosplenomegaly or masses. EXTREMITIES: Reveal warmth, redness and somewhat tender over the left thigh anteriorly. The lymph nodes in the groin area are somewhat palpable. There is no significant cyanosis, clubbing or edema otherwise noted. NEUROLOGIC: The patient is alert and oriented x3. LABS: Thus far, shows the leg to be negative for DVT on venous Doppler. Lymphadenopathy was noted. The patient's white count was 7,800, hemoglobin 10.6, platelet count 219,000. Her lactic acid 1.0. Her metabolic panel shows potassium 3.2, but everything else was otherwise normal. ASSESSMENT: The patient with recurrent cellulitis. She has been placed in the hospital on IV Vancomycin, clindamycin again as this was helpful previously. We will have a surgical consultation for possible biopsy of the lymph nodes. We will check a CT scan of the abdomen and pelvis to rule out any intraabdominal pathology that might be contributing to her problems. She has been placed on Lovenox for DVT prophylaxis.
--- NOTE | 2016-11-29 15:05 | CONS ---
DATE OF CONSULTATION: 11/29/2016. HISTORY OF PRESENT ILLNESS: A 45 year-old female, apparently had some redness in her leg, a little bit of swollen lymph nodes a couple of months ago. She was treated with antibiotics with some improvement, now there is more redness at this time. She denies any cuts, sores, or scratches. She denies any cats. History of staph infection apparently. ALLERGIES: No known drug allergies. MEDICATIONS: She has been on Vancomycin and clindamycin apparently. SOCIAL HISTORY: She denies any smoking or alcohol abuse. PAST SURGICAL HISTORY: She had a cholecystectomy in the past. She had tubal in the past. PAST MEDICAL HISTORY: Denies any major chronic illnesses. FAMILY HISTORY: Negative for lymphoma. No cancers. REVIEW OF SYSTEMS: 12 systems reviewed per admission assessment, per present noted above. No current fever. No chest pain or palpitations. No abdominal pain currently. She has had some old contusions but denies any recent injuries to her extremities. Other systems negative or noncontributory as noted above, per pre-admission physical exam. PHYSICAL EXAMINATION: GENERAL: No acute distress. HEENT: Sclerae nonicteric. NECK: No JVD. CHEST: Normal excursions, nonlabored breathing. CARDIOVASCULAR: Regular pulse. ABDOMEN: Soft, nontender. EXTREMITIES: Left thigh has some erythema and cellulitis. There is no fluctuance. There is fullness of node in the inguinal area, but no fluctuance for any immediate I&D at this point. Otherwise extremities: palpable pedal pulses, warm, viable. NEUROLOGICAL: Alert, moving extremities grossly symmetrically. VITAL SIGNS: Temperature 97.7, pulse 80, respirations 18, blood pressure 103/58. LABS: White count 5.2, hemoglobin 9.7, platelets 108,000. IMPRESSION: Cellulitis of the left lower extremity and thigh. RECOMMENDATIONS: Recommend continuing IV antibiotics at this point. She has a CT scan that was pending. According to the patient she did have duplex studies that did not show any obvious DVT. CT only showed lymphadenopathy in this area, any larger node, although risk of lymphedema, risk of ongoing infection or failure to improve is still a possibility. Either way she is nontoxic and normal white count, afebrile, no emergent surgery necessary. We will discuss with Dr. Clarisa Peralta, as I am seeing this patient for her, see what her thoughts are, but she might benefit from consideration of node biopsy or drainage if fails to improve.
--- NOTE | 2016-11-29 18:25 | XRAY ---
Indication: Left groin cellulitis. Multiple contiguous axial images obtained through the abdomen and pelvis without contrast as ordered. Comparison: None Lung bases demonstrates moderate bibasilar effusions with compressive atelectasis, right greater than left. Left lower lobe calcified granuloma. Heart is not enlarged. A few prominent distal paraesophageal nodes, largest 13 mm. There are diffuse bulky matted to peroneal lymph nodes, largest aortocaval measuring 3.0 x 2.7 cm in greatest axial dimension. Additional bulky bilateral pelvic lymphadenopathy, largest on the left measuring 3.2 x 4.2 cm. There are also bilateral inguinal bulky lymphadenopathy, largest on the left measuring 4.0 x 6.0 cm. Findings worrisome for lymphomatous malignancy. Tiny pelvic fluid may or may not be related. No free air. 12.2 cm splenomegaly. Remaining liver, pancreas, spleen, adrenal glands, kidneys, ureters, bladder, uterus, and aorta appear unremarkable for noncontrast exam. Previous cholecystectomy. Osseous structures intact without suspicious bony lesion. Impression: 1. Bulky retroperitoneal, bilateral pelvic, and bilateral inguinal lymphadenopathy worrisome for lymphomatous malignancy. Smaller paraesophageal lymph nodes. 2. Tiny pelvic free fluid and splenomegaly. 3. Moderate bibasilar effusions/atelectasis. CTDI 22.96
[2016-11-29] MEDS: Zofran 4 MG/2 ML VIAL IV PRN (21:09)
[2016-11-29] MEDS: ENOXAPARIN SODIUM SQ SCH (22:17)
[2016-11-30] MEDS: CLINDAMYCIN-D5W 900 MG/50 ML*** 50 ML IV SCH ×4 (00:44→17:55)
[2016-11-30] MEDS: Sodium Chloride 0.9% 1000 ML 1,000 ML IV SCH ×2 (04:14→17:55)
[2016-11-30] MEDS: Zofran 4 MG/2 ML VIAL IV PRN (08:00)
[2016-11-30] MEDS: PROTONIX 40 MG IV IV SCH (10:42)
[2016-11-30] MEDS: VANCOCIN 1 GM VIAL*** 1.25 GM in Sodium Chloride 0.9% 250 ML 250 ML IV SCH ×2 (10:42→22:22)
[2016-11-30] MEDS: Norco 10/325 MG Tablet PO PRN ×2 (12:48→17:55)
[2016-12-01] MEDS: CLINDAMYCIN-D5W 900 MG/50 ML*** 50 ML IV SCH ×4 (00:29→18:19)
[2016-12-01 05:50] LABS: Mean Cell Volume 77.3 fl (78-100); Platelet Count 201 K/mm3 (150-450); Red Blood Count 4.54 M/mm3 (4.1-5.4); Red Cell Distribution Width 18.7 % (11.5-14.0); White Blood Count 6.4 K/mm3 (4.0-10.5)
[2016-12-01 06:03] LABS: Mean Corpuscular Hemoglobin 23.7 pg (26-32)
[2016-12-01 07:54] LABS: ALKALINE PHOSPHATASE 57 U/L (46-116); BILIRUBIN,TOTAL 0.4 mg/dL (0.2-1.0); BLOOD UREA NITROGEN 4 mg/dL (9-20); CHLORIDE 106 mEq/L (98-107); Carbon Dioxide 25.7 mEq/L (21-32); Glucose 84 MG/DL (70-110); SGOT/AST 17 U/L (15-37); SGPT/ALT 17 U/L (12-78); SODIUM 143 mEq/L (136-145); Total Protein 6.2 gm/dL (6.4-8.2)
[2016-12-01] MEDS: Norco 10/325 MG Tablet PO PRN (08:22)
[2016-12-01] MEDS: PROTONIX 40 MG IV IV SCH (08:22)
[2016-12-01] MEDS ORDERED: TROUGH DRUG LEVELS IJ ONE (09:30)
[2016-12-01] MEDS: VANCOCIN 1 GM VIAL*** 1.25 GM in Sodium Chloride 0.9% 250 ML 250 ML IV SCH ×2 (09:59→23:05)
[2016-12-01] MEDS ORDERED: Lactated Ringers 1,000 ML IV SCH ×2 (10:15→13:30)
[2016-12-01] MEDS ORDERED: Pepcid 20 MG VIAL IV SCH (10:15)
[2016-12-01] MEDS ORDERED: DILAUDID 2 MG INJECTION IV ONE (11:00)
[2016-12-01] MEDS ORDERED: TORAdol 30 mg Injection IV ONE (11:00)
[2016-12-01] MEDS ORDERED: Decadron 4 MG INJ IV ONE (11:00)
[2016-12-01] MEDS ORDERED: Zofran 4 MG/2 ML VIAL IV ONE (11:00)
[2016-12-01] MEDS ORDERED: DIPRIVAN 200 MG/20 ML IV ONE (11:00)
[2016-12-01] MEDS ORDERED: SUBLIMAZE 100 MCG/2 ML IV ONE (11:00)
[2016-12-01] MEDS: ENOXAPARIN SODIUM SQ SCH (12:03)
[2016-12-01] MEDS ORDERED: Sensorcaine 0.25% 10 ML ONE (13:15)
[2016-12-01] MEDS ORDERED: Lactated Ringers 1,000 ML IV ONE (13:15)
[2016-12-01] MEDS ORDERED: Zosyn 3.375GM/100 Ml D5W 100 ML IV SCH (13:30)
[2016-12-01] MEDS ORDERED: SUBLIMAZE 100 MCG/2 ML ONE (15:22)
[2016-12-01] MEDS: MORPHINE SULFATE 4 MG INJ IV PRN ×2 (16:32→20:57)
[2016-12-01] MEDS: D5W/0.45NS W/ 20mEq KCl 1000 ML 1,000 ML IV SCH (16:33)
[2016-12-01] MEDS ORDERED: MORPHINE SULFATE 4 MG INJ ONE (20:50)
[2016-12-01] MEDS ORDERED: VANCOCIN 1 GM VIAL IV ONE (22:28)
[2016-12-01] MEDS ORDERED: Sodium Chloride 0.9% 250 ML 250 ML IV ONE (22:36)
[2016-12-02] MEDS: Norco 10/325 MG Tablet PO PRN ×2 (00:33→16:01)
[2016-12-02] MEDS: CLINDAMYCIN-D5W 900 MG/50 ML*** 50 ML IV SCH ×3 (02:07→11:58)
[2016-12-02] MEDS: MORPHINE SULFATE 4 MG INJ IV PRN ×2 (04:46→08:58)
[2016-12-02] MEDS: D5W/0.45NS W/ 20mEq KCl 1000 ML 1,000 ML IV SCH (06:10)
[2016-12-02] MEDS: PROTONIX 40 MG IV IV SCH (08:50)
[2016-12-02] MEDS: VANCOCIN 1 GM VIAL*** 1.25 GM in Sodium Chloride 0.9% 250 ML 250 ML IV SCH (08:50)
[2016-12-02] MEDS ORDERED: ENOXAPARIN SODIUM SQ SCH (10:00)
[2016-12-02 11:29] VITALS: O2SAT 98
--- NOTE | 2016-12-02 12:02 | OP ---
SURGERY DATE/TIME: 12/01/2016 1419 PREOPERATIVE DIAGNOSIS: Symptomatic diffuse adenopathy, history of left leg cellulitis, extensive adenopathy inguinal, pelvic, retroperitoneal, need for tissue biopsy. POSTOPERATIVE DIAGNOSIS: Symptomatic diffuse adenopathy, history of left leg cellulitis, extensive adenopathy inguinal, pelvic, retroperitoneal, need for tissue biopsy. PROCEDURE: Excisional biopsy of left inguinal lymph node (approximately 10 cm in size). SURGEON: Dr. Magnus Kelly. ANESTHESIA: General. ESTIMATED BLOOD LOSS: Minimal. INDICATIONS: As noted above. Risks and benefits explained in detail and not limited to and consent obtained. DESCRIPTION OF PROCEDURE AND FINDINGS: The patient is taken to the operating room. General anesthesia induced. Abdomen and groin prepped and draped in usual sterile fashion. After official time out and no disagreement with planned procedure, a transverse incision made directly overlying palpable neural mass left inguinal area. Dissection carried down staying directly on this thing right below the fascia was scored clipping small lymphatic and arterioles and venules going into and out of this slowly carefully was accomplished slowly carefully mobilizing out. There was extensive other fernandez adenopathy elsewhere in the inguinal area but this 10 cm lobulated node is carefully mobilized upwards with a combination of clips clamping and ligating with Vicryl ties staying directly on the node capsule. This took some time but slowly and carefully accomplished. Small little vein was ligated with Vicryl tie of 3-0 Vicryl suture ligature. It was oozing. Good hemostasis noted. The specimen is passed off. It measured about 10 cm in size. Copious amount of irrigation irrigating until clear. Good hemostasis noted. Given the large space for seroma formation it was elected to leave SURYA drain inferior stab wound. SURYA drain is placed. Fascia closed with 3-0 Vicryl, subcu closed with 3-0 Vicryl, skin closed with 4-0 Vicryl. Steri-Strips and sterile dressing applied. 0.25% Marcaine local injected along the skin incision. The patient tolerated the procedure well. There were no immediate complications. There were no family members available to discuss the findings with. This patient was seen for Dr. Clarisa Peralta who was consulted when the patient came in.
[2016-12-02 16:26] VITALS: BP 127/73; PULSE 97
== END 2016-12-02 17:10 | disposition home or self-care (01) | DRG 581 ==
LOC: ED 18:39 → MED SURG 22:25 → OBSVTOIN 11-29 09:22
PROVIDERS: ADMIT Family Medicine; ATTEND Family Medicine
PROC: 07TJ0ZZ Resection of Left Inguinal Lymphatic, Open Approach (ICD-10-PCS; principal; 2016-12-01)
DX: L03.116 Cellulitis of left lower limb (principal); R59.0 Localized enlarged lymph nodes; M79.89 Other specified soft tissue disorders
CPT/HCPCS: 00400; 36000; 36415; 74176; 80048; 80053; 80202; 83605; 85025; 85027; 87040; 88305; 88341; 88342; 93268; 93971; 94760; 96360; 96361; 96365; 96367; 96374; 96375; 99140; 99285; G0378; J1100; J1170; J1650; J1885; J2270; J2405; J2543; J2704; J3010; J3370; A9270-GY

== ENCOUNTER 2016-12-22 18:53 | Observation (INO) | payer OTHER, SELFPAY ==
[2016-12-22] MEDS ORDERED: Sodium Chloride 0.9% 1000 ML 1,000 ML ONE (19:26)
--- NOTE | 2016-12-22 19:28 | ERPHSYRPT ---
- History of Present Illness Time Seen by Provider: 12/22/16 19:23 Source: patient Exam Limitations: no limitations Patient Subjective Stated Complaint: pt co sob for a couple days, cough, no fever, recently dx with cancer, had node bsx 3 weeks ago and had drain pulled yesterday. vomiting started yesterday, unable to hold fluids down Triage Nursing Assessment: pt alert, resp easy, no cough , chest clear, skin w/d Physician History: 46-year-old white female recently diagnosed with Hodgkin's lymphoma who states she has had a biopsy several weeks ago drain removed today with. Arrives with complaint of cough shortness of breath no fever cough is nonproductive patient states pain with deep inspiration anterior chest Symptoms for several days patient has been vomiting yesterday and unable to hold fluids down No diarrhea Past medical history includes Hodgkin's lymphoma Past surgical history includes cholecystectomy biopsy of the left leg tubal ligation Social history patient denies tobacco alcohol or illicit drug use Timing/Duration: day(s) (2-3 days) Severity: moderate Modifying Factors: Improves With: nothing Associated Symptoms: nausea, vomiting, shortness of breath, cough, chest pain ( pain was deep breathing anterior chest), No abdominal pain, No heartburn, No diaphoresis, No chills, No fever, No headaches, No loss of appetite, No malaise , No rash, No syncope, No seizure, No weakness Allergies/Adverse Reactions: No Known Drug Allergies Allergy (Verified 11/28/16 18:49) Hx Tetanus, Diphtheria Vaccination/Date Given: No Hx Influenza Vaccination/Date Given: No Hx Pneumococcal Vaccination/Date Given: No Immunizations Up to Date: Yes - Review of Systems Constitutional: No Fever, No Chills Eyes: No Symptoms Ears, Nose, & Throat: No Symptoms Respiratory: Cough, Dyspnea, Other (pain with deep breathing anterior chest), No Cyanosis, No Dyspnea on Exertion (GOLDEN), No Stridor, No Wheezing Cardiac: Chest Pain (pain with deep breathing anterior chest), No Edema, No Palpitations, No Syncope, No Orthopnea, No PND Abdominal/Gastrointestinal: Nausea, Vomiting, No Abdominal Pain, No Diarrhea, No Constipation, No Hematemesis, No Hematochezia, No Melena, No Dysphagia, No Appetite Changes Genitourinary Symptoms: No Dysuria Musculoskeletal: Other (drain pulled left leg swelling left leg) Skin: Other (erythema left leg) Neurological: No Dizziness, No Focal Weakness, No Sensory Changes Psychological: No Symptoms Endocrine: No Symptoms All Other Systems: Reviewed and Negative - Past Medical History Pertinent Past Medical History: Yes Neurological History: No Pertinent History ENT History: No Pertinent History Cardiac History: No Pertinent History Respiratory History: No Pertinent History Endocrine Medical History: No Pertinent History Musculoskeletal History: No Pertinent History GI Medical History: Gallbladder Disease History: No Pertinent History Psycho-Social History: No Pertinent History Female Reproductive Disorders: No Pertinent History Other Medical History: being worked up for hodgkins - Past Surgical History Past Surgical History: Yes Neuro Surgical History: No Pertinent History Cardiac: No Pertinent History Respiratory: No Pertinent History Gastrointestinal: Cholecystectomy Genitourinary: No Pertinent History Musculoskeletal: No Pertinent History Female Surgical History: Tubal Ligation Other Surgical History: bx left leg - Social History Smoking Status: Never smoker Exposure to second hand smoke: No Drug Use: none Patient Lives Alone: No - Female History Hx Last Menstrual Period: 3 weeks ago - Nursing Vital Signs Nursing Vital Signs: Initial Vital Signs Temperature 98.6 F Temperature Source Oral Pulse Rate 89 Respiratory Rate 16 Blood Pressure [] 138/83 Pain Intensity 0 - Physical Exam General Appearance: no apparent distress, alert Eye Exam: PERRL/EOMI, eyes nml inspection Ears, Nose, Throat Exam: normal ENT inspection, TMs normal, pharynx normal, moist mucous membranes Neck Exam: normal inspection, non-tender, supple, full range of motion Respiratory Exam: normal breath sounds, lungs clear, No respiratory distress Cardiovascular Exam: regular rate/rhythm, normal heart sounds, normal peripheral pulses Gastrointestinal/Abdomen Exam: soft, normal bowel sounds, No tenderness, No mass Back Exam: normal inspection, normal range of motion, No CVA tenderness, No vertebral tenderness Extremity Exam: swelling (swelling left thigh, ) Neurologic Exam: alert, oriented x 3, cooperative, normal mood/affect, nml cerebellar function, nml station & gait, sensation nml, No motor deficits Skin Exam: warm, dry, other (erythema left thigh left thigh not hot), No rash Lymphatic Exam: No adenopathy SpO2 Interpretation: normal (98%) SpO2: 98 Oxygen Delivery: Room Air - Course Nursing assessment & vital signs reviewed: Yes EKG Interpreted by Me: RATE (91 bpm), Sinus Rhythm, NORMAL AXIS, Other (EKG: Normal sinus rhythm 91 bpm T wave inversion lead3 no acute ST or T wave changes noted) - Radiology Exams Chest X-ray Interpretation: Interpreted by me, Negative, No Pneumonia, No Pneumothorax - CT Exams Chest CT Interpretation: Discussed w/radiologist (chest ct: no comparisons, non occluding pe left lower lobe. moderate bilateral effusions with compressive atelectasisbut no cardiomegaly. prominent mediastinal nodeswithlarge bulky bilateral axillary nodeslargest L axilla4,7/2.5 cmalso bilateral supraclavicularadenopathy, upper abdominal adenopathyand splenomegaly detailed ct abdomen pelvis 11/29/16) - Radiology Ultrasound Exam Venous Lower Extremity Ultrasound: Other (per mineral technologist, dvt left leg common femoral and distal dvt multiple lymph nodes.) Ordered Tests: Active Orders 24 hr Category Date Time Status EKG-ER Only STAT Care 12/22/16 19:19 Active IV Insertion STAT Care 12/22/16 19:19 Active CHEST 1 VIEW (PORTABLE) Stat Exams 12/22/16 19:19 Taken CHEST WITH CONTRAST [CT] Stat Exams 12/22/16 20:05 Taken VENOUS UNILAT/LIMITED EXTREMIT [US] Stat Exams 12/22/16 20:05 Taken BLOOD CULTURE Stat Lab 12/22/16 19:35 Received CBC W DIFF Stat Lab 12/22/16 19:15 Completed CMP Stat Lab 12/22/16 19:15 Completed CULTURE,URINE Stat Lab 12/22/16 19:19 Ordered CULTURE,WOUND Stat Lab 12/22/16 19:22 Ordered D-DIMER QUANTITATION Stat Lab 12/22/16 19:15 Completed Lactic Acid Urgent Lab 12/22/16 19:40 Completed NT PRO BNP Stat Lab 12/22/16 19:15 Completed PROTIME WITH INR Stat Lab 12/22/16 19:15 Completed PTT Stat Lab 12/22/16 19:15 Completed TROPONIN Stat Lab 12/22/16 19:15 Completed UA Stat Lab 12/22/16 19:19 Ordered Medication Summary Generic Name Dose Route Start Last Admin Trade Name Freq PRN Reason Stop Dose Admin Sodium Chloride 1,000 mls @ 100 mls/hr 12/22/16 19:30 12/22/16 19:29 Sodium Chloride 0.9% 1000 Ml IV 01/21/17 19:29 100 mls/hr .Q10H JONO Administration Lab/Rad Data: Laboratory Result Diagrams 12/22/16 19:15 12/22/16 19:15 Laboratory Results 12/22/16 12/22/16 12/22/16 Range/Units 19:40 19:35 19:15 WBC (4.0-10.5) K/mm3 RBC (4.1-5.4) M/mm3 Hgb (12.0-16.0) gm/dl Hct (35-47) % MCV (78-100) fl MCH (26-32) pg MCHC (32-36) g/dl RDW (11.5-14.0) % Plt Count (150-450) K/mm3 MPV (6-9.5) fl Gran % (36.0-66.0) % Lymphocytes % (24.0-44.0) % Monocytes % (0.0-12.0) % Eosinophils % (0.00-5.0) % Basophils % (0.0-0.4) % Basophils # (0-0.4) INR 1.14 (0.8-3.0) APTT 28.1 (25.3-37.0) SECONDS D-Dimer (0.00-0.49) mg/L Sodium (136-145) mEq/L Potassium (3.5-5.1) mEq/L Chloride (98-107) mEq/L Carbon Dioxide (21-32) mEq/L Anion Gap (5-15) MEQ/L BUN (9-20) mg/dL Creatinine (0.55-1.30) mg/dl Estimated GFR ML/MIN Glucose (70-110) MG/DL Lactic Acid 1.3 (0.4-2.0) Calcium (8.5-10.1) mg/dL Total Bilirubin (0.2-1.0) mg/dL AST (15-37) U/L ALT (12-78) U/L Alkaline Phosphatase (46-116) U/L Troponin I (0.000-0.056) ng/ml NT-Pro-B Natriuret Pep (0-125) pg/ml Serum Total Protein (6.4-8.2) gm/dL Albumin (3.4-5.0) g/dL Influenza Type A Ag NEGATIVE (NEGATIVE) Influenza Type B Ag NEGATIVE (NEGATIVE) RSV (PCR) NEGATIVE (Negative) 12/22/16 12/22/16 12/22/16 Range/Units 19:15 19:15 19:15 WBC 10.0 (4.0-10.5) K/mm3 RBC 4.81 (4.1-5.4) M/mm3 Hgb 11.2 L (12.0-16.0) gm/dl Hct 36.0 (35-47) % MCV 74.8 L (78-100) fl MCH 23.2 L (26-32) pg MCHC 31.1 L (32-36) g/dl RDW 18.1 H (11.5-14.0) % Plt Count 297 (150-450) K/mm3 MPV 9.3 (6-9.5) fl Gran % 80.5 H (36.0-66.0) % Lymphocytes % 8.5 L (24.0-44.0) % Monocytes % 7.3 (0.0-12.0) % Eosinophils % 3.3 (0.00-5.0) % Basophils % 0.4 (0.0-0.4) % Basophils # 0.04 (0-0.4) INR (0.8-3.0) APTT (25.3-37.0) SECONDS D-Dimer 2.07 H* (0.00-0.49) mg/L Sodium 138 (136-145) mEq/L Potassium 3.4 L (3.5-5.1) mEq/L Chloride 100 (98-107) mEq/L Carbon Dioxide 27.3 (21-32) mEq/L Anion Gap 14.2 (5-15) MEQ/L BUN 8 L (9-20) mg/dL Creatinine 0.95 (0.55-1.30) mg/dl Estimated GFR > 60 ML/MIN Glucose 149 H (70-110) MG/DL Lactic Acid (0.4-2.0) Calcium 9.2 (8.5-10.1) mg/dL Total Bilirubin 0.4 (0.2-1.0) mg/dL AST 17 (15-37) U/L ALT 14 (12-78) U/L Alkaline Phosphatase 89 (46-116) U/L Troponin I < 0.017 (0.000-0.056) ng/ml NT-Pro-B Natriuret Pep 135 H (0-125) pg/ml Serum Total Protein 6.8 (6.4-8.2) gm/dL Albumin 3.1 L (3.4-5.0) g/dL Influenza Type A Ag (NEGATIVE) Influenza Type B Ag (NEGATIVE) RSV (PCR) (Negative) - Progress Progress: improved Progress Note: 12/22/16 22:17 Patient with left lower extremity DVT, left lower lobe pulmonary embolism, bilateral pleural effusions.. Patient with a history of Hodgkin's lymphoma. I've discussed the case with Dr. Childers. He has requested that the patient be given Lasix 40 mg IV one time, That patient be placed on Lovenox 1 mg/kg subcutaneously every 12 hours, Will monitor oxygen saturations and place patient on telemetry. - Departure Time of Disposition: 22:18 Departure Disposition: Observation Clinical Impression: Shortness of breath, pulmonary effusion Pulmonary embolism Qualifiers: Pulmonary embolism type: other Chronicity: unspecified Acute cor pulmonale presence: without acute cor pulmonale Qualified Code(s): I26.99 - Other pulmonary embolism without acute cor pulmonale DVT (deep venous thrombosis) Qualifiers: Affected thrombotic vein of extremity: femoral Laterality: left Chronicity: acute Condition: Fair Critical Care Time: No
[2016-12-22 19:29] LABS: BASOPHIL % 0.4 % (0.0-0.4); Eosinophil % 3.3 % (0.00-5.0); Granulocytes % 80.5 % (36.0-66.0); Lymphocytes % 8.5 % (24.0-44.0); Mean Cell Volume 74.8 fl (78-100); Mean Platelet Volume 9.3 fl (6-9.5); Monocytes % 7.3 % (0.0-12.0); Platelet Count 297 K/mm3 (150-450); Red Blood Count 4.81 M/mm3 (4.1-5.4); Red Cell Distribution Width 18.1 % (11.5-14.0)
[2016-12-22 19:30] LABS: Mean Corpuscular Hemoglobin 23.2 pg (26-32)
[2016-12-22] MEDS ORDERED: Sodium Chloride 0.9% 1000 ML 1,000 ML IV SCH (19:30)
[2016-12-22 19:53] LABS: ALBUMIN 3.1 g/dL (3.4-5.0); ALKALINE PHOSPHATASE 89 U/L (46-116); ANION GAP 14.2 MEQ/L (5-15); BILIRUBIN,TOTAL 0.4 mg/dL (0.2-1.0); BLOOD UREA NITROGEN 8 mg/dL (9-20); CHLORIDE 100 mEq/L (98-107); Carbon Dioxide 27.3 mEq/L (21-32); Glucose 149 MG/DL (70-110); Potassium 3.4 mEq/L (3.5-5.1); SGOT/AST 17 U/L (15-37); SGPT/ALT 14 U/L (12-78); SODIUM 138 mEq/L (136-145); Total Protein 6.8 gm/dL (6.4-8.2)
[2016-12-22 20:00] LABS: TROPONIN < 0.017 ng/ml (0.000-0.056)
[2016-12-22 20:33] LABS: INR 1.14 (0.8-3.0); PROTIME 12.7 SECONDS (9.95-12.35)
[2016-12-22 20:35] LABS: PTT 28.1 SECONDS (25.3-37.0)
[2016-12-22] MEDS ORDERED: Lasix 40 MG/4 ML IV ONE (22:21)
[2016-12-22] MEDS ORDERED: ENOXAPARIN SODIUM SQ ONE ×2 (22:22→22:41)
[2016-12-22] MEDS ORDERED: Lasix 40 MG/4 ML ONE (22:40)
[2016-12-22] MEDS ORDERED: Zofran 4 MG/2 ML VIAL IV ONE (22:49)
[2016-12-22] MEDS ORDERED: Zofran 4 MG/2 ML VIAL ONE (22:51)
[2016-12-22] MEDS ORDERED: ENOXAPARIN SODIUM SQ SCH (23:20)
[2016-12-22 23:50] LABS: Collection Type CLEAN CATCH
[2016-12-22 23:51] LABS: Bacteria RARE /HPF (NEGATIVE); COMPLETE URINE MICROSCOPIC? YES; Epithelial Cells MODERATE /HPF (FEW)
[2016-12-23] MEDS ORDERED: Phenergan 25 MG INJ IV PRN (04:06)
[2016-12-23] MEDS: NORCO 5/325 MG PO PRN ×2 (04:12→08:29)
[2016-12-23 05:43] LABS: BASOPHIL % 0.5 % (0.0-0.4); Eosinophil % 4.2 % (0.00-5.0); Granulocytes % 79.9 % (36.0-66.0); Lymphocytes % 7.8 % (24.0-44.0); Mean Cell Volume 75.1 fl (78-100); Mean Corpuscular Hemoglobin 23.1 pg (26-32); Mean Platelet Volume 9.4 fl (6-9.5); Monocytes % 7.6 % (0.0-12.0); Platelet Count 250 K/mm3 (150-450); Red Cell Distribution Width 18.3 % (11.5-14.0); White Blood Count 10.5 K/mm3 (4.0-10.5)
[2016-12-23 06:24] LABS: ALKALINE PHOSPHATASE 79 U/L (46-116); ANION GAP 13.7 MEQ/L (5-15); BILIRUBIN,TOTAL 0.5 mg/dL (0.2-1.0); BLOOD UREA NITROGEN 7 mg/dL (9-20); CHLORIDE 101 mEq/L (98-107); Carbon Dioxide 28.5 mEq/L (21-32); Glucose 108 MG/DL (70-110); Potassium 3.3 mEq/L (3.5-5.1); SGOT/AST 19 U/L (15-37); SGPT/ALT 14 U/L (12-78); SODIUM 140 mEq/L (136-145); Total Protein 6.5 gm/dL (6.4-8.2)
--- NOTE | 2016-12-23 08:49 | XRAY ---
Indication: Short of breath and chest pain. Elevated d-dimer. Multiple contiguous axial images obtained through the chest using 80 cc Isovue 370 contrast and PE protocol. Comparison: None There is good opacification of the pulmonary arteries to include the lobar and segmental branches. Tiny nonoccluding pulmonary emboli seen in the distal left lower lobe pulmonary artery. Heart is not enlarged. Aorta is normal in course and caliber. Tiny left hilar calcified nodes. There are prominent mediastinal and distal paraesophageal lymph nodes, largest subcarinal measuring 1.3 x 3.0 cm. Additional multiple bilateral supraclavicular and bilateral lymphadenopathy, largest in the left axilla measuring 4.7 x 2.5 cm. Examination of the lung parenchyma demonstrates moderate bilateral pleural effusions with mild bilateral compressive atelectasis. Left base calcified granuloma. 4-5 mm noncalcified nodule in the right middle lobe probably granulomatous as well. Bony thorax intact. Upper abdomen demonstrates splenomegaly and retroperitoneal lymphadenopathy as recently detailed on CT abdomen November 29, 2016. Impression: 1. Left lower lobe nonoccluding pulmonary emboli. No distal infarct. 2. Mediastinal, distal paraesophageal, supraclavicular, axillary, and upper abdominal lymphadenopathy. Rule out lymphomatous malignancy. 3. Moderate bilateral pleural effusions with compressive atelectasis. 4. Right middle lobe noncalcified micronodule probably granulomatous as there is evidence elsewhere. CT DI 21.53
--- NOTE | 2016-12-23 08:51 | XRAY ---
Indication: Short of breath. Comparison: September 30, 2016. Portable chest demonstrates new moderate bibasilar effusion/atelectasis. Heart is not enlarged. Vascularity normal. Bony thorax intact. Impression: New bibasilar effusion/atelectasis without cardiomegaly.
--- NOTE | 2016-12-23 08:52 | SSS ---
DISCHARGE DIAGNOSES: 1) PULMONARY EMBOLISM. 2) DEEP VENOUS THROMBOSIS LEFT LEG. 3) HODGKIN'S LYMPHOMA. HISTORY: The patient is a 46 year-old white female patient who has been diagnosed recently with Hodgkin's lymphoma. The patient had biopsy in the left groin area and she has seen Dr. Mauro in follow up at this point but has not instituted a treatment just yet. The patient began having problems with shortness of breath. She brought herself to the emergency room. CT scan had been ordered as an outpatient. The patient did not feel like she could wait. She was seen in the emergency room. She was evaluated for left lower extremity for deep venous thrombosis which was positive. The patient also on CT scan did show a nonobstructing pulmonary embolism in the left lung base. The patient was admitted to the hospital for evaluation and monitoring and begun on Lovenox treatment with 1 mg/kg. HOSPITAL COURSE: The patient has done well since admission. Her O2 saturations have been above 93% for the most part at rest. She does have significant swelling over the left lower extremity which has been present previously but has gotten worse of the ensuing two weeks since I initially saw her. It was also somewhat reddened and warm. Although the patient has not been running any fever, she was initially treated for what was felt to be cellulitis previously but her leg redness and warmth has not resolved due to the presence of the edema from the lymphoma. The patient's laboratory studies on this visit showed her glucose to be 108, BUN 7, creatinine 0.91. Potassium slightly low at 3.3. Her liver enzymes appeared to be normal. Her CBC showed a white blood cell count of 10,500, hemoglobin 10.4, PLT count 250,000. There appeared to be a mild left shift with 79.9% granulocytes. Her UA was essentially normal. She was negative for influenza A/B and respiratory syncytial virus. Her international normalized ratio was 1.14. BNP was 135 which is minimally elevated. Lactic acid was 1.3. D-dimer was elevated at 2.07. At this point the patient was felt to be ready for discharge home. We will consult with her hematology-oncology doctor about which anticoagulant to use. She is currently on Lovenox. She is in the process of being scheduled for port placement and PET scan evaluation to begin chemotherapy. I believe it is currently scheduled for 01/06/2017. 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 She is warned about potential for particularly gastrointestinal bleeding and to call us if she has any black stools or significant blood loss from nose bleeds or any other source of blood loss.
--- NOTE | 2016-12-23 08:57 | XRAY ---
Indication: Left leg swelling. Lymphoma. Two-dimensional sonogram and color Doppler imaging of the major venous vessels of the left leg was performed. Comparison: November 28, 2016. There is now near occluding thrombi in the common femoral and entire superficial femoral vein. No thrombus in the popliteal or lower leg deep venous system. Again incidental large left inguinal lymph nodes. Impression: New left leg DVT. Again left inguinal lymphadenopathy. Comment: Preliminary report was given.
[2016-12-23] MEDS ORDERED: NON-FORMULARY ITEM (Melatonin [Melatonin] 5 MG) PO PRN (09:29)
[2016-12-23] MEDS ORDERED: MEDICATION INTERVENTION MC PRN (09:31)
[2016-12-23] MEDS ORDERED: PREVNAR 13 SYRINGE IM ONE (10:00)
[2016-12-23] MEDS ORDERED: ENOXAPARIN SODIUM SQ SCH (10:00)
[2016-12-23 12:18] VITALS: BP 132/71; PULSE 90; O2SAT 96
[2016-12-24] MEDS ORDERED: PREVNAR 13 SYRINGE IM ONE (10:00)
== END 2016-12-23 12:20 | disposition home or self-care (01) ==
LOC: ED 18:53 → MED SURG 23:19
PROVIDERS: ADMIT Family Medicine; ATTEND Family Medicine
DX: I26.99 Other pulmonary embolism without acute cor pulmonale (principal); I82.4Z2 Acute embolism and thrombosis of unspecified deep veins of left distal lower extremity; C81.90 Hodgkin lymphoma, unspecified, unspecified site
CPT/HCPCS: 36000; 36415; 71010; 71260; 80053; 81000; 83605; 83880; 84484; 85025; 85379; 85610; 85730; 87040; 87070; 87077; 87086; 87186; 87631; 90670; 93005; 93268; 93971; 94762; 96360; 96361; 96372; 96374; 96375; 99285; G0009; G0378; J1650; J1940; J2405; J2550; A9270-GY

== ENCOUNTER 2016-12-30 10:53 | Observation (INO) | payer SELFPAY ==
[2016-12-30] MEDS ORDERED: Phenergan 25 MG INJ IV ONE (10:57)
[2016-12-30] MEDS ORDERED: ENOXAPARIN SODIUM SQ ONE (10:57)
[2016-12-30] MEDS ORDERED: Dextrose 5% -0.45 NaCl 1000 ML 1,000 ML IV SCH (11:00)
[2016-12-30] MEDS ORDERED: Phenergan 25 MG INJ ONE (11:11)
[2016-12-30 11:16] LABS: Mean Corpuscular Hemoglobin 23.1 pg (26-32); Mean Platelet Volume 9.4 fl (6-9.5); Platelet Count 252 K/mm3 (150-450); Red Blood Count 5.23 M/mm3 (4.1-5.4); Red Cell Distribution Width 18.5 % (11.5-14.0); White Blood Count 10.2 K/mm3 (4.0-10.5)
[2016-12-30 11:40] LABS: ALBUMIN 3.2 g/dL (3.4-5.0); ALKALINE PHOSPHATASE 87 U/L (46-116); ANION GAP 13.5 MEQ/L (5-15); BLOOD UREA NITROGEN 12 mg/dL (9-20); CHLORIDE 103 mEq/L (98-107); Carbon Dioxide 26.2 mEq/L (21-32); Glucose 147 MG/DL (70-110); Potassium 3.7 mEq/L (3.5-5.1); SGOT/AST 23 U/L (15-37); SGPT/ALT 14 U/L (12-78); SODIUM 139 mEq/L (136-145)
[2016-12-30] MEDS ORDERED: NON-FORMULARY ITEM (Melatonin [Melatonin] 5 MG) PO PRN (17:19)
[2016-12-30] MEDS ORDERED: MEDICATION INTERVENTION MC PRN (17:22)
[2016-12-30] MEDS: DILAUDID 2 MG INJECTION IV PRN ×2 (17:53→23:56)
[2016-12-30] MEDS: Phenergan 25 MG INJ IV PRN ×2 (17:55→23:46)
[2016-12-30] MEDS: D5W/0.45NS W/ 20mEq KCl 1000 ML 1,000 ML IV SCH (18:00)
[2016-12-31] MEDS: D5W/0.45NS W/ 20mEq KCl 1000 ML 1,000 ML IV SCH ×3 (01:20→17:29)
[2016-12-31] MEDS: DILAUDID 2 MG INJECTION IV PRN ×3 (08:13→21:07)
[2016-12-31] MEDS: Phenergan 25 MG INJ IV PRN ×3 (08:14→21:09)
[2016-12-31] MEDS ORDERED: PHENERGAN 25 MG PR PRN (08:44)
[2016-12-31] MEDS ORDERED: ENOXAPARIN SODIUM SQ SCH (10:00)
[2016-12-31] MEDS ORDERED: SUBLIMAZE 100 MCG/2 ML IV ONE (12:00)
[2016-12-31] MEDS ORDERED: Versed 2 MG/2 ML Injection IV ONE (12:00)
[2016-12-31] MEDS ORDERED: DIPRIVAN 200 MG/20 ML IV ONE (12:00)
[2017-01-01] MEDS: D5W/0.45NS W/ 20mEq KCl 1000 ML 1,000 ML IV SCH (01:32)
[2017-01-01] MEDS: PHENERGAN 25 MG PO PRN ×3 (04:17→16:43)
[2017-01-01] MEDS: Norco 10/325 MG Tablet PO PRN ×3 (04:17→16:43)
[2017-01-01 05:36] LABS: Mean Cell Volume 75.5 fl (78-100); Mean Platelet Volume 9.3 fl (6-9.5); Platelet Count 220 K/mm3 (150-450); Red Blood Count 4.66 M/mm3 (4.1-5.4); Red Cell Distribution Width 18.3 % (11.5-14.0); White Blood Count 7.6 K/mm3 (4.0-10.5)
[2017-01-01 05:47] LABS: Mean Corpuscular Hemoglobin 23.1 pg (26-32)
[2017-01-01 06:44] LABS: ALBUMIN 2.9 g/dL (3.4-5.0); ALKALINE PHOSPHATASE 73 U/L (46-116); ANION GAP 11.5 MEQ/L (5-15); BLOOD UREA NITROGEN 5 mg/dL (9-20); CHLORIDE 105 mEq/L (98-107); Carbon Dioxide 25.4 mEq/L (21-32); Glucose 127 MG/DL (70-110); SGOT/AST 24 U/L (15-37); SGPT/ALT 23 U/L (12-78); SODIUM 138 mEq/L (136-145); Total Protein 6.1 gm/dL (6.4-8.2)
[2017-01-01] MEDS: Phenergan 25 MG INJ IV PRN (07:55)
[2017-01-01] MEDS: DILAUDID 2 MG INJECTION IV PRN (07:55)
[2017-01-01] MEDS ORDERED: Lactated Ringers 1,000 ML IV SCH (08:00)
[2017-01-01] MEDS ORDERED: CEFAZOLIN 2 GM-D5W BAG** 2 GM/50 ML ML IV SCH (08:00)
--- NOTE | 2017-01-01 08:29 | PCM.DCORD ---
- Discharge Discharge Date: 01/01/17 Condition: Fair Prescriptions: Continue Melatonin 5 mg PO HS PRN PRN Reason: sleep aid Enoxaparin Sodium [Lovenox] 80 mg SQ DAILY Promethazine HCl 25 mg [Phenergan 25 mg] 25 mg PO Q4HPRN PRN #30 tablet PRN Reason: Nausea Changed Hydrocodone Bit/Acetaminophen [Hydrocodon-Acetaminophn 10-325] 1 each PO Q6HPRN PRN #60 tablet PRN Reason: Pain Follow up with: SHANE GUTIERREZ [Primary Care Provider] - 01/09/17 9:45 am TOMAS REAGAN [COURTESY STAFF] - 1 Week Forms: Patient Portal Information
[2017-01-01] MEDS ORDERED: XYLOCAINE 1% HCL 20 ML MDV ONE (08:37)
[2017-01-01] MEDS ORDERED: Lactated Ringers 0 ML IV ONE (08:38)
[2017-01-01] MEDS ORDERED: Thrombin-JMI 5000 UNITS TP ONE (09:47)
[2017-01-01] MEDS ORDERED: Xopenex 1.25 MG/0.5 ML UD NEBULE IH ONE ×2 (10:10→10:11)
[2017-01-01 15:46] VITALS: BP 136/77; PULSE 104; O2SAT 97
--- NOTE | 2017-01-02 03:01 | XRAY ---
Indication: Port placement. Intraoperative fluoroscopy was provided for 3 seconds. A single digital spot image submitted for interpretation demonstrates a left-sided port with the catheter tip in the projection of the mid SVC pointing inferiorly. Correlate with intraoperative findings/report.
--- NOTE | 2017-01-02 08:01 | OP ---
SURGERY DATE/TIME: 01/01/2017923 PREOPERATIVE DIAGNOSES: 1) History of lymphoma need for air bag buffer IV access for IV chemotherapy. 2) History of deep venous thrombosis, pulmonary embolism and leg edema. POSTOPERATIVE DIAGNOSES: 1) History of lymphoma need for air bag buffer IV access for IV chemotherapy. 2) History of deep venous thrombosis, pulmonary embolism and leg edema. PROCEDURE: Tunnel Port-A-Cath placement with C-arm fluoroscopy. SURGEON: Dr. Magnus Kelly. ANESTHESIA: MAC. ESTIMATED BLOOD LOSS: Minimal. INDICATIONS: As noted above. Risks and benefits explained in detail and not limited to and consent obtained. DESCRIPTION OF PROCEDURE AND FINDINGS: The patient was taken to the OR. MAC anesthesia was introduced. After official time out and no disagreement with planned procedure in Trendelenburg position, prepped and draped in usual sterile fashion. 1% lidocaine local was infiltrated. Left subclavicular area 18 gauge cannulation needle inserted. On first pass good dark nonpulsatile venous return. Guide wire passed without difficulty followed by the guide wire which was confirmed down the superior vena cava on C-arm fluoroscopy. It was followed by anesthetizing the port pocket and tunnel track. A transverse incision made. Inferior subcu port pocket created with aide of cautery. Port secured to the chest wall with Prolene suture x2. Catheter tunneled down from the cannulation stab wound down to port pocket area. The dilator and break away sheath easily fed over the guide wire. The catheter fed down break away sheath. The tip was pulled back so it was in the distal superior vena cava on C-arm fluoroscopy. Catheter is cut to appropriate length snapped on the port with the hub. The port aspirated dark nonpulsatile venous return with ease. Flushed with heparinized saline with ease. She had been on some Lovenox for pulmonary embolism and deep venous thrombosis there were no visible vessels to cauterize or ligate but she did have a raw ooze. Small amount of thrombus. She appeared to have excellent hemostasis at this point. No signs of any active bleeding. No signs of any visible vessels to cauterize or ligate. Again, the port was flushed and aspirated with ease, flushed with heparinized saline with ease. Good hemostasis noted. Subcu closed with 3-0 Vicryl. Skin closed with 4-0 Vicryl. Cannulation stab wound closed with 4-0 Vicryl. Steri-Strips and sterile dressing applied. The patient tolerated the procedure well. There were no immediate complications. Findings discussed with the family out in the waiting area. The patient's groin incision looked fine. No signs of any expanding seroma at this time. Cannulation stab wound closed with 4-0 Vicryl, Steri-Strips and sterile dressing applied. The patient tolerated the procedure well. There were no immediate complications. Findings discussed with the family out in the waiting area.
--- NOTE | 2017-01-02 09:04 | SSS ---
DISCHARGE DIAGNOSES: 1) HODGKIN'S LYMPHOMA. 2) VOMITING. 3) DEHYDRATION. 4) LEFT LEG EDEMA. HOSPITAL COURSE: The patient is a 46 year-old white female who has been recently diagnosed with Hodgkin's lymphoma. The patient has not tolerated the process very well as she has been nauseated and vomiting and having significant left leg distention from the edema from her lymph nodes in her groin being obstructed. The patient has been scheduled for a port placement and has follow up with her oncologist here in the next week. However, she presented to my office with severe vomiting and was almost toxic in appearance at the time. The patient was brought into the hospital where she received IV fluid hydration and Dr. Peralta consultation for placement of port for eventual chemotherapy. The patient's laboratory studies on 01/01/2017 showed a white blood cell count of 7,600, hemoglobin 10.8, PLT count 220,000. She had a glucose of 147, BUN 12, creatinine 1.01. Normal electrolytes and normal liver enzymes on 12/30/2016. The patient was felt the need to be discharge home as she appeared to be better after her port placement. Discharge plans are for her to continue follow up with her oncologist as previously scheduled. She was given Phenergan tablets to take to help with her nausea issue and she is welcome to return to the hospital or call me if she has any further problems or if she feels dehydrated and needs IV fluids again.
== END 2017-01-01 17:21 | disposition home or self-care (01) ==
LOC: INFUSION 10:53 → MED SURG 13:40
PROVIDERS: ADMIT Family Medicine; ATTEND Family Medicine
PROC: 02HV33Z Insertion of Infusion Device into Superior Vena Cava, Percutaneous Approach (ICD-10-PCS; principal; 2017-01-01)
DX: C81.90 Hodgkin lymphoma, unspecified, unspecified site (principal); E86.0 Dehydration; R60.0 Localized edema; Z86.718 Personal history of other venous thrombosis and embolism; Z86.711 Personal history of pulmonary embolism
CPT/HCPCS: 00532; 36415; 77001; 80053; 85027; 94640; 96360; 96372; 96374; C1788; G0378; J0690; J1170; J1642; J1650; J2250; J2550; J2704; J3010; A9270-GY

== ENCOUNTER 2017-08-21 15:59 | Emergency (ER) | payer OTHER, SELFPAY ==
[2017-08-21] MEDS ORDERED: TYLENOL 325 MG PO ONE (16:28)
[2017-08-21] MEDS ORDERED: Zofran 4 MG/2 ML VIAL IV ONE (16:28)
[2017-08-21] MEDS ORDERED: Sodium Chloride 0.9% 1000 ML 1,000 ML IV STA (16:28)
--- NOTE | 2017-08-21 16:33 | ERPHSYRPT ---
- History of Present Illness Time Seen by Provider: 08/21/17 16:25 Source: patient Patient Subjective Stated Complaint: PT REPORTS NASUE[place] ET DIARRHEA EVERY TIME SHE EATS FOR 4 DAYS-REPORTS ABD PAIN WHEN SHE EATS-DENIES PAIN AT THIS TIME- DENIES VOMITING-DENIES FEVER Triage Nursing Assessment: PT PINK WARM ET [id number] SOFT ET NONTENDER TO PALP-BOWEL SOUNDS PRESENT Physician History: CC: nausea/diarrhea hx: 46 y/o patient of Dr Childers/Zunilda with hx of lymphoma in remission for 3 months. She has few day hx of diarrhea, nausea, weakness. No fever or chills. Some abdominal cramping. Normal urination. No actual vomiting. Took left over zofran but ran out. No chest pain. Not diabetic. Timing/Duration: day(s) (few) Severity: moderate Allergies/Adverse Reactions: No Known Drug Allergies Allergy (Verified 08/21/17 16:16) Home Medications: Melatonin 5 mg PO HS PRN 12/23/16 [History] Famotidine 20 mg [Pepcid 20 MG] 20 mg PO DAILY 08/21/17 [History] Iron 18 mg PO BID 08/21/17 [History] Metoprolol Succinate 25 mg Xl* [Toprol-Xl 25MG Tablets] 0 mg PO DAILY [History] Rivaroxaban [Xarelto] 20 mg PO DAILY 08/21/17 [History] Hx Tetanus, Diphtheria Vaccination/Date Given: No Hx Influenza Vaccination/Date Given: No Hx Pneumococcal Vaccination/Date Given: No Immunizations Up to Date: Yes - Review of Systems Constitutional: Chills (hot flashes), Malaise, Weakness, No Fever Eyes: No Symptoms Ears, Nose, & Throat: No Symptoms Respiratory: No Cough, No Dyspnea Cardiac: No Chest Pain Abdominal/Gastrointestinal: Nausea, Diarrhea, No Abdominal Pain, No Vomiting Genitourinary Symptoms: No Dysuria Skin: No Rash Neurological: No Headache All Other Systems: Reviewed and Negative - Past Medical History Pertinent Past Medical History: Yes Neurological History: Seizures, Other ENT History: No Pertinent History Cardiac History: Deep Vein Thrombosis Respiratory History: Pulmonary Embolism Endocrine Medical History: No Pertinent History Musculoskeletal History: No Pertinent History GI Medical History: Gallbladder Disease History: No Pertinent History Psycho-Social History: No Pertinent History Female Reproductive Disorders: No Pertinent History Other Medical History: Childhood seizures - Past Surgical History Past Surgical History: Yes Neuro Surgical History: No Pertinent History Cardiac: No Pertinent History Respiratory: No Pertinent History Gastrointestinal: Cholecystectomy Genitourinary: No Pertinent History Musculoskeletal: No Pertinent History Female Surgical History: Tubal Ligation Other Surgical History: bx left leg - Social History Smoking Status: Former smoker Exposure to second hand smoke: No Drug Use: none Patient Lives Alone: No - Female History Hx Now: No - Nursing Vital Signs Nursing Vital Signs: Initial Vital Signs Temperature 97.8 F 08/21/17 16:13 Pulse Rate 70 08/21/17 16:13 Respiratory Rate 20 08/21/17 16:13 Blood Pressure 117/71 08/21/17 16:13 O2 Sat by Pulse Oximetry 99 08/21/17 16:13 Pain Scale Pain Intensity 7 - Physical Exam General Appearance: alert, other (pleasant lady) Eye Exam: PERRL/EOMI Ears, Nose, Throat Exam: normal ENT inspection, dry mucous membranes Neck Exam: normal inspection, non-tender, supple Respiratory Exam: normal breath sounds, lungs clear Cardiovascular Exam: regular rate/rhythm Gastrointestinal/Abdomen Exam: soft, No tenderness, No distention, No mass, No guarding Back Exam: normal inspection, normal range of motion Extremity Exam: normal inspection, normal range of motion Neurologic Exam: alert, oriented x 3, cooperative, wood veneer taper II-XII nml as tested, sensation nml, No motor deficits Skin Exam: dry, other (hot skin), No rash SpO2 Interpretation: normal SpO2: 99 Oxygen Delivery: Room Air - Course Nursing assessment & vital signs reviewed: Yes EKG Interpreted by Me: RATE (54), Sinus Ronak, NORMAL AXIS, NORMAL INTERVALS ( QTc 391), NORMAL QRS, NORMAL ST-T - Radiology Exams AAS X-ray Interpretation: Reviewed by me, Negative Ordered Tests: Active Orders 24 hr Category Date Time Status Clean Catch Urine Specimen STAT Care 08/21/17 16:28 Active EKG-ER Only STAT Care 08/21/17 16:28 Active IV Insertion STAT Care 08/21/17 16:28 Active OBSTR/ACUTE ABDOMEN SERIES Stat Exams 08/21/17 16:29 Taken BLOOD CULTURE Stat Lab 08/21/17 16:55 Received CBC W DIFF Stat Lab 08/21/17 16:55 Completed CMP Stat Lab 08/21/17 16:40 Completed Lactic Acid Stat Lab 08/21/17 17:05 Completed UA W/RFX UR CULTURE Stat Lab 08/21/17 18:00 Completed Medication Summary Discontinued Medications Generic Name Dose Route Start Last Admin Trade Name Rickyq PRN Reason Stop Dose Admin Acetaminophen 975 mg 08/21/17 16:28 08/21/17 17:09 Tylenol 325 Mg PO 08/21/17 16:29 975 mg STAT ONE Administration Acetaminophen Confirm 08/21/17 16:56 Tylenol 325 Mg Administered 08/21/17 16:57 Dose 975 mg .ROUTE .STK-MED ONE Sodium Chloride 1,000 mls @ 999 mls/hr 08/21/17 16:28 08/21/17 17:09 Sodium Chloride 0.9% 1000 Ml IV 08/21/17 17:28 999 mls/hr .Q1H1M STA Administration Sodium Chloride Confirm 08/21/17 16:56 Sodium Chloride 0.9% 1000 Ml Administered 08/21/17 16:57 Dose 1,000 mls @ ud .ROUTE .STK-MED ONE Ondansetron HCl 4 mg 08/21/17 16:28 08/21/17 17:09 Zofran 4 Mg/2 Ml Vial IV 08/21/17 16:29 4 mg STAT ONE Administration Ondansetron HCl Confirm 08/21/17 16:56 Zofran 4 Mg/2 Ml Vial Administered 08/21/17 16:57 Dose 4 mg .ROUTE .STK-MED ONE Lab/Rad Data: Laboratory Result Diagrams 08/21/17 16:55 08/21/17 16:40 Laboratory Results 08/21/17 08/21/17 08/21/17 Range/Units 18:00 17:05 16:55 WBC 10.2 (4.0-10.5) K/mm3 RBC 4.81 (4.1-5.4) M/mm3 Hgb 13.3 (12.0-16.0) gm/dl Hct 40.6 (35-47) % MCV 84.4 (78-100) fl MCH 27.7 (26-32) pg MCHC 32.8 (32-36) g/dl RDW 13.0 (11.5-14.0) % Plt Count 183 (150-450) K/mm3 MPV 9.8 H (6-9.5) fl Gran % 68.2 H (36.0-66.0) % Lymphocytes % 21.9 L (24.0-44.0) % Monocytes % 7.9 (0.0-12.0) % Eosinophils % 1.9 (0.00-5.0) % Basophils % 0.1 (0.0-0.4) % Basophils # 0.01 (0-0.4) Sodium (136-145) mEq/L Potassium (3.5-5.1) mEq/L Chloride (98-107) mEq/L Carbon Dioxide (21-32) mEq/L Anion Gap (5-15) MEQ/L BUN (9-20) mg/dL Creatinine (0.55-1.30) mg/dl Estimated GFR ML/MIN Glucose (70-110) MG/DL Lactic Acid 0.9 (0.4-2.0) Calcium (8.5-10.1) mg/dL Total Bilirubin (0.2-1.0) mg/dL AST (15-37) U/L ALT (12-78) U/L Alkaline Phosphatase (46-116) U/L Serum Total Protein (6.4-8.2) gm/dL Albumin (3.4-5.0) g/dL Ur Collection Type CLEAN CATCH Urine Color YELLOW (YELLOW) Urine Appearance CLEAR (CLEAR) Urine pH 6.0 (5-6) Ur Specific [place] 1.010 (1.005-1.025) Urine Protein NEGATIVE (Negative) Urine Ketones NEGATIVE (NEGATIVE) Urine Blood NEGATIVE (0-5) Emerson/ul Urine Nitrite NEGATIVE (NEGATIVE) Urine Bilirubin NEGATIVE (NEGATIVE) Urine Urobilinogen NORMAL (0-1) mg/dL Ur Leukocyte Esterase NEGATIVE (NEGATIVE) Urine Culture Reflexed NO (NO) Urine Glucose NEGATIVE (NEGATIVE) mg/dL Influenza Type A Ag (NEGATIVE) Influenza Type B Ag (NEGATIVE) RSV (PCR) (Negative) Specimen Received 08/21/17 1800 08/21/17 08/21/17 Range/Units 16:40 16:34 WBC (4.0-10.5) K/mm3 RBC (4.1-5.4) M/mm3 Hgb (12.0-16.0) gm/dl Hct (35-47) % MCV (78-100) fl MCH (26-32) pg MCHC (32-36) g/dl RDW (11.5-14.0) % Plt Count (150-450) K/mm3 MPV (6-9.5) fl Gran % (36.0-66.0) % Lymphocytes % (24.0-44.0) % Monocytes % (0.0-12.0) % Eosinophils % (0.00-5.0) % Basophils % (0.0-0.4) % Basophils # (0-0.4) Sodium 138 (136-145) mEq/L Potassium 3.7 (3.5-5.1) mEq/L Chloride 103 (98-107) mEq/L Carbon Dioxide 27.4 (21-32) mEq/L Anion Gap 11.6 (5-15) MEQ/L BUN 12 (9-20) mg/dL Creatinine 0.77 (0.55-1.30) mg/dl Estimated GFR > 60 ML/MIN Glucose 94 (70-110) MG/DL Lactic Acid (0.4-2.0) Calcium 9.5 (8.5-10.1) mg/dL Total Bilirubin 0.50 (0.2-1.0) mg/dL AST 33 (15-37) U/L ALT 34 (12-78) U/L Alkaline Phosphatase 99 (46-116) U/L Serum Total Protein 7.2 (6.4-8.2) gm/dL Albumin 3.9 (3.4-5.0) g/dL Ur Collection Type Urine Color (YELLOW) Urine Appearance (CLEAR) Urine pH (5-6) Ur Specific Warren (1.005-1.025) Urine Protein (Negative) Urine Ketones (NEGATIVE) Urine Blood (0-5) Emerson/ul Urine Nitrite (NEGATIVE) Urine Bilirubin (NEGATIVE) Urine Urobilinogen (0-1) mg/dL Ur Leukocyte Esterase (NEGATIVE) Urine Culture Reflexed (NO) Urine Glucose (NEGATIVE) mg/dL Influenza Type A Ag NEGATIVE (NEGATIVE) Influenza Type B Ag NEGATIVE (NEGATIVE) RSV (PCR) NEGATIVE (Negative) Specimen Received - Progress Progress Note: 08/21/17 18:31 Ambualting to BR without problems. Took po without vomiting. Feels better after IVF and Zofran. Likely viral syndrome. Will release with instructions. Counseled pt/family regarding: lab results, diagnosis, need for follow-up, rad results - Departure Time of Disposition: 18:32 Departure Disposition: Home Clinical Impression: Diarrhea, Viral syndrome Condition: Stable Critical Care Time: No Referrals: SHANE CHILDERS [Primary Care Provider] - Instructions: Vomiting -- Adult, Diarrhea and Traveler's Diarrhea -- Adult Additional Instructions: VIRAL ILLNESS 1. Rest at home and take any prescribed medications as directed or until gone. 2. Offer plenty of fluids as tolerated. 3. Acetaminophen or Ibuprofen as directed. 4. Be sure to follow up with your family physician or return to the emergency department if symptoms change or become worse. VOMITING AND DIARRHEA 1. Take only small amounts of clear, cool liquids at frequent intervals as tolerated for the next 24-48 hours. Avoid milk products and orange juice. Clear liquids are those liquids which you can see through. 2. Pedialyte and popsicles are recommended clear liquids. 3. If the condition worsens you should contact your family physician or return to the emergency department for re-evaluation. Rx zofran. Sip fluids. Return for problems or concerns. Prescriptions: Ondansetron ODT 4 MG [Zofran Odt 4 mg] 1 tab PO Q6H PRN PRN #10 tab.rapdis PRN Reason: Nausea/Vomiting
[2017-08-21] MEDS ORDERED: Sodium Chloride 0.9% 1000 ML 1,000 ML ONE (16:56)
[2017-08-21] MEDS ORDERED: TYLENOL 325 MG ONE (16:56)
[2017-08-21] MEDS ORDERED: Zofran 4 MG/2 ML VIAL ONE (16:56)
[2017-08-21 17:07] LABS: BASOPHIL % 0.1 % (0.0-0.4); Basophil (Absolute #) 0.01 (0-0.4); Eosinophil % 1.9 % (0.00-5.0); Eosinophil (Absolute #) 0.19 (0-0.5); Granulocyte Absolute (ANC) 6.93 (1.4-6.9); Granulocytes % 68.2 % (36.0-66.0); Hematocrit 40.6 % (35-47); Hemoglobin 13.3 gm/dl (12.0-16.0); Lymphocyte (Absolute #) 2.22 (1.0-4.6); Lymphocytes % 21.9 % (24.0-44.0); Mean Cell Volume 84.4 fl (78-100); Mean Corpuscular Hemoglobin 27.7 pg (26-32); Mean Corpuscular Hgb Concent. 32.8 g/dl (32-36); Mean Platelet Volume 9.8 fl (6-9.5); Monocytes % 7.9 % (0.0-12.0); Platelet Count 183 K/mm3 (150-450); Red Blood Count 4.81 M/mm3 (4.1-5.4); White Blood Count 10.2 K/mm3 (4.0-10.5)
[2017-08-21 17:29] LABS: ALBUMIN 3.9 g/dL (3.4-5.0); ALKALINE PHOSPHATASE 99 U/L (46-116); ANION GAP 11.6 MEQ/L (5-15); BLOOD UREA NITROGEN 12 mg/dL (9-20); CHLORIDE 103 mEq/L (98-107); Calcium 9.5 mg/dL (8.5-10.1); Carbon Dioxide 27.4 mEq/L (21-32); Creatinine 1 0.77 mg/dl (0.55-1.30); EST GLOMERULAR FILTRATION RATE > 60 ML/MIN; Glucose 94 MG/DL (70-110); Potassium 3.7 mEq/L (3.5-5.1); SGOT/AST 33 U/L (15-37); SGPT/ALT 34 U/L (12-78); SODIUM 138 mEq/L (136-145); Total Protein 7.2 gm/dL (6.4-8.2)
[2017-08-21 17:47] LABS: INFLUENZA A NEGATIVE (NEGATIVE); INFLUENZA B NEGATIVE (NEGATIVE); RESPIRATORY SYNCTIAL VIRUS NEGATIVE (Negative)
[2017-08-21 18:07] LABS: Appearance CLEAR (CLEAR); Bilirubin NEGATIVE (NEGATIVE); Blood NEGATIVE Ery/ul (0-5); Glucose NEGATIVE (NEGATIVE); Ketones NEGATIVE (NEGATIVE); Leukocyte Esterase NEGATIVE (NEGATIVE); Nitrite NEGATIVE (NEGATIVE); Protein,Urine Dip NEGATIVE (Negative); Urobilinogen NORMAL mg/dL (0-1)
[2017-08-21 18:52] VITALS: BP 102/48; PULSE 62; O2SAT 98
--- NOTE | 2017-08-21 22:43 | XRAY ---
Indication: Diarrhea. Comparison: Portable chest December 22, 2016. 2 views of the abdomen nonacute and nonobstructed with cholecystectomy clips. Solid organs and osseous structures unremarkable. Single PA chest demonstrates normal heart, lungs, and bony thorax with a few incidental calcified granulomas and new left-sided Port-A-Cath. Impression: Negative abdomen. Nonacute one view chest.
== END 2017-08-21 18:52 | disposition home or self-care (01) ==
LOC: ED 15:59
DX: R19.7 Diarrhea, unspecified (principal); B34.9 Viral infection, unspecified
CPT/HCPCS: 36000; 36415; 74022; 80053; 81002; 83605; 85025; 87040; 87631; 93005; 96360; 96374; 99284; J1642; J2405; A9270-GY

== ENCOUNTER 2017-11-08 19:11 | Emergency (ER) | payer OTHER ==
[2017-11-08] MEDS ORDERED: MORPHINE SULFATE 4 MG INJ IV ONE (19:49)
--- NOTE | 2017-11-08 19:54 | ERPHSYRPT ---
- History of Present Illness Time Seen by Provider: 11/08/17 19:40 Source: patient Exam Limitations: no limitations Patient Subjective Stated Complaint: Left leg swelling Triage Nursing Assessment: Pt presents to the ED with complaints of left leg swelling x2 weeks, worse x2 days. Pt states no injury. Pt states hx of complaint related to lymphoma x1 year ago. Pt denies other complaints. Swelling noted throughout left leg, no wounds or drainage noted. No distress noted. Physician History: 46 y/o female with history of lymphoma, DVT and PE comes to the ER with complaints of left lower extremity swelling and pain for the past 2 weeks that has worsened over the last 4 days. Pt states that the swelling goes from the ankles up to the thigh. Pt describes the pain as aching, constant, 8/10 and relieved by norco. Pt is currently on xarelto and has been compliant for the last 8 months. Pt denies any chest pain, shortness of breath or dizziness. Occurred: days ago Quality: constant, aching Severity of Pain-Max: severe Severity of Pain-Current: severe Lower Extremities Pain: leg: left, knee: left, thigh: left, ankle: left Modifying Factors: Improves With: nothing Associated Symptoms: none Allergies/Adverse Reactions: rituximab [From Rituxan] Allergy (Intermediate, Verified 11/08/17 19:31) Sore Throat Home Medications: Melatonin 5 mg PO HS PRN 12/23/16 [History] Famotidine 20 mg [Pepcid 20 MG] 20 mg PO DAILY 08/21/17 [History] Iron 18 mg PO BID 08/21/17 [History] Metoprolol Succinate 25 mg Xl* [Toprol-Xl 25MG Tablets] 0 mg PO DAILY [History] Rivaroxaban [Xarelto] 20 mg PO DAILY 08/21/17 [History] Cyanocobalamin (Vitamin B-12) [Vitamin B12] 2,500 mcg PO 11/08/17 [History] Hydrocodone Bit/Acetaminophen [[place] 5-325 Tablet] 1 each PO Q6H PRN 11/08/17 [ History] Hx Tetanus, Diphtheria Vaccination/Date Given: No Hx Influenza Vaccination/Date Given: No Hx Pneumococcal Vaccination/Date Given: No Immunizations Up to Date: No - Review of Systems Constitutional: No Fever, No Chills Eyes: No Symptoms Ears, Nose, & Throat: No Symptoms Respiratory: No Cough, No Dyspnea Cardiac: No Chest Pain, No Edema, No Syncope Abdominal/Gastrointestinal: No Abdominal Pain, No Nausea, No Vomiting, No Diarrhea Genitourinary Symptoms: No Dysuria Musculoskeletal: Joint Swelling, Myalgias, No Back Pain, No Neck Pain Skin: Other (swelling), No Rash Neurological: No Dizziness, No Focal Weakness, No Sensory Changes Psychological: No Symptoms Endocrine: No Symptoms All Other Systems: Reviewed and Negative - Past Medical History Pertinent Past Medical History: Yes Neurological History: Seizures, Other ENT History: No Pertinent History Cardiac History: Deep Vein Thrombosis Respiratory History: Pulmonary Embolism Endocrine Medical History: No Pertinent History Musculoskeletal History: No Pertinent History GI Medical History: Gallbladder Disease History: No Pertinent History Psycho-Social History: No Pertinent History Female Reproductive Disorders: No Pertinent History Other Medical History: Childhood seizures - Past Surgical History Past Surgical History: Yes Neuro Surgical History: No Pertinent History Cardiac: No Pertinent History Respiratory: No Pertinent History Gastrointestinal: Cholecystectomy Genitourinary: No Pertinent History Musculoskeletal: No Pertinent History Female Surgical History: Tubal Ligation Other Surgical History: bx left leg - Social History Smoking Status: Never smoker Exposure to second hand smoke: No Drug Use: none Patient Lives Alone: No - Female History Hx Last Menstrual Period: 12/2016 Hx Now: No - Nursing Vital Signs Nursing Vital Signs: Initial Vital Signs Temperature 98.5 F 11/08/17 19:24 Pulse Rate 67 11/08/17 19:24 Respiratory Rate 16 11/08/17 19:24 Blood Pressure 109/76 11/08/17 19:24 O2 Sat by Pulse Oximetry 100 11/08/17 19:24 Pain Scale Pain Intensity 2 - Physical Exam General Appearance: alert Eyes, Ears, Nose, Throat Exam: moist mucous membranes Neck Exam: non-tender, supple Cardiovascular/Respiratory Exam: chest non-tender, normal breath sounds, regular rate/rhythm, no respiratory distress Gastrointestinal/Abdominal Exam: non-tender, guarding Back Exam: normal inspection, No vertebral tenderness Legs Exam: left leg: pain, soft tissue tenderness, swelling Knees Exam: left knee: pain, soft tissue tenderness, swelling Ankle Exam: left ankle: pain, soft tissue tenderness, swelling Foot Exam: left foot: pain, soft tissue tenderness, swelling Neuro/Tendon Exam: normal sensation, normal motor functions Mental Status Exam: alert, oriented x 3, cooperative Skin Exam: normal color, warm, dry SpO2: 100 Oxygen Delivery: Room Air - Course Nursing assessment & vital signs reviewed: Yes Ordered Tests: Active Orders 24 hr Category Date Time Status IV Insertion STAT Care 11/08/17 19:49 Active VENOUS UNILAT/LIMITED EXTREMIT [US] Stat Exams 11/08/17 19:48 Ordered CBC W DIFF Stat Lab 11/08/17 20:05 Completed CMP Stat Lab 11/08/17 20:05 Completed PT INR [PROTIME WITH INR] Stat Lab 11/08/17 20:05 Completed PTT Stat Lab 11/08/17 20:05 Completed Medication Summary Discontinued Medications Generic Name Dose Route Start Last Admin Trade Name Freq PRN Reason Stop Dose Admin Morphine Sulfate 4 mg 11/08/17 19:49 11/08/17 20:13 Morphine Sulfate 4 Mg Inj IV 11/08/17 19:50 4 mg STAT ONE Administration Morphine Sulfate Confirm 11/08/17 20:09 Morphine Sulfate 4 Mg Inj Administered 11/08/17 20:10 Dose 4 mg .ROUTE .[employer]-MED ONE Lab/Rad Data: Laboratory Result Diagrams 11/08/17 20:05 11/08/17 20:05 Laboratory Results 11/08/17 11/08/17 11/08/17 Range/Units 20:05 20:05 20:05 WBC 10.3 (4.0-10.5) K/mm3 RBC 4.69 (4.1-5.4) M/mm3 Hgb 13.3 (12.0-16.0) gm/dl Hct 40.3 (35-47) % MCV 85.9 (78-100) fl MCH 28.4 (26-32) pg MCHC 33.0 (32-36) g/dl RDW 13.9 (11.5-14.0) % Plt Count 222 (150-450) K/mm3 MPV 9.5 (6-9.5) fl Gran % 72.7 H (36.0-66.0) % Eos # (Auto) 0.35 (0-0.5) Absolute Lymphs (auto) 1.54 (1.0-4.6) Absolute Monos (auto) 0.89 (0.0-1.3) Lymphocytes % 15.0 L (24.0-44.0) % Monocytes % 8.6 (0.0-12.0) % Eosinophils % 3.4 (0.00-5.0) % Basophils % 0.3 (0.0-0.4) % Absolute Granulocytes 7.49 H (1.4-6.9) Basophils # 0.03 (0-0.4) PT 14.0 H (9.95-12.35) SECONDS INR 1.26 (0.8-3.0) APTT 32.5 (25.3-37.0) SECONDS Sodium 138 (137-145) mmol/L Potassium 3.6 (3.5-5.1) mmol/L Chloride 99 (98-107) mmol/L Carbon Dioxide 30 (22-30) mmol/L Anion Gap 12.1 (5-15) MEQ/L BUN 17 (7-17) mg/dL Creatinine 1.05 H (0.52-1.04) mg/dL Estimated GFR 60.0 ML/MIN Glucose 102 (74-106) mg/dL Calcium 9.6 (8.4-10.2) mg/dL Total Bilirubin 0.30 (0.2-1.3) mg/dL AST 22 (14-36) U/L ALT 22 (0-35) U/L Alkaline Phosphatase 100 (38-126) U/L Serum Total Protein 7.2 (6.3-8.2) g/dL Albumin 4.2 (3.5-5.0) g/dL - Progress Progress: improved Progress Note: 11/08/17 21:44 The lower extremity doppler does not show any DVT but there is large size lymph nodes on the left side. Pt feels better after receiving morphine. Pt will be referred back to Dr Brand and Dr Bass her oncologist. - Departure Time of Disposition: 21:45 Departure Disposition: Home Clinical Impression: Lymphadenopathy Condition: Stable Critical Care Time: No Referrals: SHANE GUTIERREZ [Primary Care Provider] - TOMAS REAGAN [COURTESY STAFF] - VERONIKA BO [COURTESY STAFF] - Instructions: Lymphedema (DC) Additional Instructions: Follow up with your surgeon and oncologist tomorrow and set up an appointment. The doppler ultrasound does not show a DVT but there are large size lymph nodes.
[2017-11-08] MEDS ORDERED: MORPHINE SULFATE 4 MG INJ ONE (20:09)
[2017-11-08 20:10] LABS: BASOPHIL % 0.3 % (0.0-0.4); Basophil (Absolute #) 0.03 (0-0.4); Eosinophil % 3.4 % (0.00-5.0); Eosinophil (Absolute #) 0.35 (0-0.5); Granulocyte Absolute (ANC) 7.49 (1.4-6.9); Granulocytes % 72.7 % (36.0-66.0); Hematocrit 40.3 % (35-47); Hemoglobin 13.3 gm/dl (12.0-16.0); Lymphocyte (Absolute #) 1.54 (1.0-4.6); Mean Cell Volume 85.9 fl (78-100); Mean Corpuscular Hemoglobin 28.4 pg (26-32); Mean Platelet Volume 9.5 fl (6-9.5); Monocyte (Absolute #) 0.89 (0.0-1.3); Monocytes % 8.6 % (0.0-12.0); Platelet Count 222 K/mm3 (150-450); Red Blood Count 4.69 M/mm3 (4.1-5.4); Red Cell Distribution Width 13.9 % (11.5-14.0); White Blood Count 10.3 K/mm3 (4.0-10.5)
[2017-11-08 20:21] LABS: ALBUMIN 4.2 g/dL (3.5-5.0); ANION GAP 12.1 MEQ/L (5-15); BILIRUBIN,TOTAL 0.3 mg/dL (0.2-1.3); Calcium 9.6 mg/dL (8.4-10.2); Creatinine 1 1.05 mg/dL (0.52-1.04); Potassium 3.6 mmol/L (3.5-5.1); Total Protein 7.2 g/dL (6.3-8.2)
[2017-11-08 20:43] LABS: INR 1.26 (0.8-3.0)
[2017-11-08 20:46] LABS: PTT 32.5 SECONDS (25.3-37.0)
[2017-11-08 21:56] VITALS: BP 111/67; PULSE 82; O2SAT 98
--- NOTE | 2017-11-09 08:52 | XRAY ---
Indication: Left leg edema and erythema. History lymphoma. Two-dimensional sonogram and color Doppler imaging of the major venous vessels of the left leg was performed. Comparison: December 22, 2016. No thrombus seen in the examined deep venous vessels of the left leg including greater saphenous vein. Veins demonstrate normal compressibility. Venous waveforms are normal with and without augmentation. Again incidental inguinal lymph nodes, largest 2 x 2.7 cm. Impression: Left leg negative for DVT. Incidental prominent inguinal lymph nodes. Comment: Preliminary report was given.
== END 2017-11-08 21:56 | disposition home or self-care (01) ==
LOC: ED 19:11
DX: R59.1 Generalized enlarged lymph nodes (principal); G40.909 Epilepsy, unspecified, not intractable, without status epilepticus; Z79.01 Long term (current) use of anticoagulants; Z79.899 Other long term (current) drug therapy; Z86.718 Personal history of other venous thrombosis and embolism; Z86.711 Personal history of pulmonary embolism
CPT/HCPCS: 36000; 36415; 80053; 85025; 85610; 85730; 93971; 96374; 99283; 99284; J2270

== ENCOUNTER 2019-10-30 12:26 | Emergency (ER) | payer MEDICARE, OTHER ==
[2019-10-30] MEDS ORDERED: Sodium Chloride 0.9% 1000 ML 1,000 ML IV STA ×2 (12:50→14:26)
[2019-10-30] MEDS ORDERED: Zofran 4 MG/2 ML VIAL IV ONE (12:50)
[2019-10-30] MEDS ORDERED: BABY ASPIRIN 81 MG CHEW PO ONE (12:50)
[2019-10-30] MEDS ORDERED: DUONEB 0.5-3 MG/3 ml Neb IH ONE ×2 (12:52→13:04)
--- NOTE | 2019-10-30 12:59 | ERPHSYRPT ---
- History of Present Illness Time Seen by Provider: 10/30/19 12:28 Patient Subjective Stated Complaint: pt here for vomiting and loose stools for 8 days now, she was given augmentin and zofran for a URI, she has had a cough and sob for 8 days now, Triage Nursing Assessment: pt alert, resp easy, skin w.d.p ,moves all ext well, pt apears weak but is able to undress self. Physician History: Patient is here for nausea, vomiting. Patient has had shortness of breath x8 days. She states that she was treated for a URI. She was given a augmentin and Zofran. Patient has had continued nausea and vomiting. Location: generalized Quality: Malaise, vomiting, diarrhea Radiation: None Severity: Moderate Duration: 8 days Timing: Gradual Modifying factors/associated signs and symptoms: Augmentin and Zofran Allergies/Adverse Reactions: rituximab [From Rituxan] Allergy (Intermediate, Verified 10/30/19 12:48) Sore Throat Home Medications: Melatonin 5 mg PO HS PRN 12/23/16 [History] Famotidine 20 mg [Pepcid 20 MG] 20 mg PO DAILY 08/21/17 [History] Iron 18 mg PO BID 08/21/17 [History] Metoprolol Succinate 25 mg Xl* [Toprol-Xl 25MG Tablets] 0 mg PO DAILY [History] Rivaroxaban [Xarelto] 20 mg PO DAILY 08/21/17 [History] Cyanocobalamin (Vitamin B-12) [Vitamin B12] 2,500 mcg PO DAILY 11/08/17 [History ] Hydrocodone Bit/Acetaminophen [[place] 5-325 Tablet] 1 each PO Q6H PRN 11/08/17 [ History] Hx Tetanus, Diphtheria Vaccination/Date Given: No Hx Influenza Vaccination/Date Given: Yes Hx Pneumococcal Vaccination/Date Given: Yes Immunizations Up to Date: Yes Travel Risk - International Travel Have you traveled outside of the country in past 3 weeks: No Have you or anyone close to you been diagnosed with or: No Do your reside in a community with a known COVID-19 case?: Yes If Yes where:: [place] - Coronavirus Screening Has patient experienced Coronavirus symptoms: Yes Symptoms experienced: respiratory symptoms (i.e.Cought,shortness of breath) Date of respiratory symptoms onset:: 10/23/19 - Review of Systems Constitutional: No Fever, No Chills Eyes: No Symptoms Ears, Nose, & Throat: No Symptoms Respiratory: Cough, Dyspnea, Wheezing Cardiac: No Chest Pain, No Edema, No Syncope Abdominal/Gastrointestinal: Vomiting, Diarrhea, No Abdominal Pain, No Nausea Genitourinary Symptoms: No Dysuria Musculoskeletal: No Back Pain, No Neck Pain Skin: No Rash Neurological: No Dizziness, No Focal Weakness, No Sensory Changes Psychological: No Symptoms Endocrine: No Symptoms All Other Systems: Reviewed and Negative - Past Medical History Pertinent Past Medical History: Yes Neurological History: Seizures, Other ENT History: No Pertinent History Cardiac History: Deep Vein Thrombosis Respiratory History: Pulmonary Embolism Endocrine Medical History: No Pertinent History Musculoskeletal History: No Pertinent History GI Medical History: Gallbladder Disease History: No Pertinent History Psycho-Social History: No Pertinent History Female Reproductive Disorders: No Pertinent History Other Medical History: Childhood seizures - Past Surgical History Past Surgical History: Yes Neuro Surgical History: No Pertinent History Cardiac: No Pertinent History Respiratory: No Pertinent History Gastrointestinal: Cholecystectomy Genitourinary: No Pertinent History Musculoskeletal: No Pertinent History Female Surgical History: Tubal Ligation Other Surgical History: bx left leg - Social History Smoking Status: Never smoker Exposure to second hand smoke: No Drug Use: none Patient Lives Alone: No - Female History Hx Last Menstrual Period: psot Hx Now: No - Nursing Vital Signs Nursing Vital Signs: Initial Vital Signs Temperature 98.2 F 10/30/19 12:38 Pulse Rate 115 H 10/30/19 12:38 Respiratory Rate 18 10/30/19 12:38 Blood Pressure 109/90 10/30/19 12:38 O2 Sat by Pulse Oximetry 98 10/30/19 12:38 Pain Scale Pain Intensity 0 - Physical Exam General Appearance: no apparent distress, alert Eye Exam: PERRL/EOMI, eyes nml inspection Ears, Nose, Throat Exam: normal ENT inspection, TMs normal, pharynx normal, moist mucous membranes Neck Exam: normal inspection, non-tender, supple, full range of motion Respiratory Exam: normal breath sounds, wheezing (Wheezing and congestion throughout), No respiratory distress Cardiovascular Exam: regular rate/rhythm, normal heart sounds Gastrointestinal/Abdomen Exam: soft, No tenderness Back Exam: normal inspection, No CVA tenderness, No vertebral tenderness Extremity Exam: normal inspection, normal range of motion Neurologic Exam: alert, oriented x 3, cooperative, normal mood/affect, sensation nml, No motor deficits Skin Exam: normal color, warm, dry, No rash Lymphatic Exam: No adenopathy SpO2: 98 Ordered Tests: Active Orders 24 hr Category Date Time Status Record Producer STAT Care 10/30/19 12:51 Active EKG-ER Only STAT Care 10/30/19 12:50 Active IV Insertion STAT Care 10/30/19 12:50 Active Pulse Oximetry (ED) STAT Care 10/30/19 12:50 Active CHEST 1 VIEW (PORTABLE) Routine Exams 10/30/19 14:48 Taken CBC W DIFF Stat Lab 10/30/19 13:13 Completed CMP Stat Lab 10/30/19 13:13 Completed Manual Differential NC Stat Lab 10/30/19 13:13 Completed NT PRO BNP Stat Lab 10/30/19 13:13 Completed PROTIME WITH INR Stat Lab 10/30/19 13:13 Completed PTT Stat Lab 10/30/19 13:13 Completed TROPONIN Q3H Lab 10/30/19 13:13 Completed TROPONIN Q3H Lab 10/30/19 16:00 Ordered TROPONIN Q3H Lab 10/30/19 19:00 Ordered TROPONIN Q3H Lab 10/30/19 22:00 Ordered TROPONIN Q3H Lab 10/31/19 01:00 Ordered Respiratory Therapy Assessment DAILY RT 10/30/19 13:59 Completed Medication Summary Generic Name Dose Route Start Last Admin Trade Name Freq PRN Reason Stop Dose Admin Vancomycin HCl 1 gm in 250 mls @ 167 mls/hr 10/30/19 14:54 Vancomycin 1gm/ Ns 250ml IV 10/30/19 16:23 STAT ONE Discontinued Medications Generic Name Dose Route Start Last Admin Trade Name Freq PRN Reason Stop Dose Admin Albuterol/Ipratropium 3 ml 10/30/19 12:52 10/30/19 13:25 Duoneb 0.5-3 Mg/3 Ml Neb IH 10/30/19 12:53 3 ml STAT ONE Administration Albuterol/Ipratropium Confirm 10/30/19 13:04 Duoneb 0.5-3 Mg/3 Ml Neb Administered 10/30/19 13:05 Dose 3 ml IH .STK-MED ONE Aspirin 324 mg 10/30/19 12:50 10/30/19 13:26 Baby Aspirin 81 Mg Chew PO 10/30/19 12:51 324 mg STAT ONE Administration Aspirin Confirm 10/30/19 13:22 Baby Aspirin 81 Mg Chew Administered 10/30/19 13:23 Dose 324 mg .ROUTE .STK-MED ONE Cefepime HCl 0 g 10/30/19 15:00 10/30/19 15:05 Maxipime 2 Gm IV 10/30/19 15:01 2 g ONCE ONE Administration Cefepime HCl Confirm 10/30/19 14:57 Maxipime 2 Gm Administered 10/30/19 14:58 Dose 2 g .ROUTE .STK-MED ONE Sodium Chloride 1,000 mls @ 999 mls/hr 10/30/19 12:50 10/30/19 14:35 Sodium Chloride 0.9% 1000 Ml IV 10/30/19 13:50 Infused .Q1H1M STA Infusion Sodium Chloride Confirm 10/30/19 13:22 Sodium Chloride 0.9% 1000 Ml Administered 10/30/19 13:23 Dose 1,000 mls @ ud .ROUTE .STK-MED ONE Sodium Chloride 1,000 mls @ 999 mls/hr 10/30/19 14:26 10/30/19 14:34 Sodium Chloride 0.9% 1000 Ml IV 10/30/19 15:26 Infused .Q1H1M STA Infusion Sodium Chloride Confirm 10/30/19 14:27 Sodium Chloride 0.9% 1000 Ml Administered 10/30/19 14:28 Dose 1,000 mls @ ud .ROUTE .STK-MED ONE Sodium Chloride Confirm 10/30/19 15:00 Sodium Chloride 0.9% 100 Ml Ivpb Administered 10/30/19 15:01 Dose 100 mls @ ud IV .STK-MED ONE Vancomycin HCl Confirm 10/30/19 15:21 Vancomycin 1gm/ Ns 250ml Administered 10/30/19 15:22 Dose 250 mls @ ud IV .STK-MED ONE Ondansetron HCl 8 mg 10/30/19 12:50 10/30/19 13:25 Zofran 4 Mg/2 Ml Vial IV 10/30/19 12:51 8 mg STAT ONE Administration Ondansetron HCl Confirm 10/30/19 13:22 Zofran 4 Mg/2 Ml Vial Administered 10/30/19 13:23 Dose 8 mg .ROUTE .STK-MED ONE Lab/Rad Data: Laboratory Result Diagrams 10/30/19 13:13 10/30/19 13:13 Laboratory Results 10/30/19 10/30/19 10/30/19 Range/Units 13:13 13:13 13:13 WBC (4.0-10.5) K/mm3 RBC (4.1-5.4) M/mm3 Hgb (12.0-16.0) gm/dl Hct (35-47) % MCV (78-100) fl MCH (26-32) pg MCHC (32-36) g/dl RDW (11.5-14.0) % Plt Count (150-450) K/mm3 MPV (7.5-11.0) fl PT 13.5 H (9.95-12.35) SECONDS INR 1.19 (0.8-3.0) APTT 28.5 (25.3-37.0) SECONDS Sodium (137-145) mmol/L Potassium (3.5-5.1) mmol/L Chloride (98-107) mmol/L Carbon Dioxide (22-30) mmol/L Anion Gap (5-15) MEQ/L BUN (7-17) mg/dL Creatinine (0.52-1.04) mg/dL Estimated GFR ML/MIN Glucose (74-106) mg/dL Calcium (8.4-10.2) mg/dL Total Bilirubin (0.2-1.3) mg/dL AST (14-36) U/L ALT (0-35) U/L Alkaline Phosphatase (38-126) U/L Troponin I < 0.012 (0.000-0.034) ng/mL NT-Pro-B Natriuret Pep (0-450) pg/mL Serum Total Protein (6.3-8.2) g/dL Albumin (3.5-5.0) g/dL Influenza Type A Ag POSITIVE (NEGATIVE) Influenza Type B Ag NEGATIVE (NEGATIVE) RSV (PCR) NEGATIVE (Negative) Group A Strep Antibody NOT DETECTED (NEGATIVE) 10/30/19 10/30/19 Range/Units 13:13 13:13 WBC 0.9 L* (4.0-10.5) K/mm3 RBC 2.62 L (4.1-5.4) M/mm3 Hgb 8.8 L (12.0-16.0) gm/dl Hct 25.9 L (35-47) % MCV 98.9 (78-100) fl MCH 33.6 H (26-32) pg MCHC 34.0 (32-36) g/dl RDW 12.4 (11.5-14.0) % Plt Count 38 L (150-450) K/mm3 MPV 12.5 H (7.5-11.0) fl PT (9.95-12.35) SECONDS INR (0.8-3.0) APTT (25.3-37.0) SECONDS Sodium 137 (137-145) mmol/L Potassium 2.5 L* (3.5-5.1) mmol/L Chloride 99 (98-107) mmol/L Carbon Dioxide 22 (22-30) mmol/L Anion Gap 19.4 H (5-15) MEQ/L BUN 63 H (7-17) mg/dL Creatinine 4.58 H (0.52-1.04) mg/dL Estimated GFR 10.9 ML/MIN Glucose 103 (74-106) mg/dL Calcium 8.9 (8.4-10.2) mg/dL Total Bilirubin 1.20 (0.2-1.3) mg/dL AST 61 H (14-36) U/L ALT 48 H (0-35) U/L Alkaline Phosphatase 103 (38-126) U/L Troponin I (0.000-0.034) ng/mL NT-Pro-B Natriuret Pep 347 (0-450) pg/mL Serum Total Protein 7.0 (6.3-8.2) g/dL Albumin 4.0 (3.5-5.0) g/dL Influenza Type A Ag (NEGATIVE) Influenza Type B Ag (NEGATIVE) RSV (PCR) (Negative) Group A Strep Antibody (NEGATIVE) - Progress Progress: improved Air Movement: good Progress Note: 10/30/19 12:58 Differential diagnosis includes influenza, COVID19, pneumonia, pulmonary embolism, STEMI, bronchitis - We'll obtain basic labs, fluids, EKG, troponin, chest x-ray - EKG shows no ST changes - my read. See full read below. - O2 saturations consistently greater than 95% on RA -We will give fluids, breathing treatment, aspirin, Zofran 10/30/19 15:28 Patient does appear acutely ill. I believe that she has severe sepsis secondary to bilateral pneumonia. Patient is influenza A positive. There is also the possibility the patient has COVID 19. However, I was informed by infection control nurse we are unable to test for COVID 19 given the patient is being transferred to [facility]. Chest x-ray shows pneumonia. Patient also has acute renal failure. Patient given fluids, started on broad-spectrum antibiotics. Cefepime and vancomycin. I did discuss over the phone with patient's on-call oncologist, Dr. Cadet. He ultimately requested that we admit to the hospitalist, Dr. Chung. I did discuss over the phone with him. Discussed case in detail. I did relay my suspicion of possible coronavirus. He is aware. Respiratory and droplet precautions will need to be taken. ED critical care statement As staff physician, I have provided critical care. Time: 60 min Criteria for critical illness: Acute renal failure, bilateral pneumonia, severe sepsis Treatment and management provided include: Coordination of management with ETC care team, consultants, and inpatient care team. [id number] assessment of condition and response to therapy. Review and interpretation of emergent diagnostic testing. Medical chart review and completion. Direction and immediate supervision of the following therapy: Critical care was time spent personally by me on the following activities: blood draw for specimens, development of treatment plan with patient or surrogate, discussions with consultants, discussions with primary provider, interpretation of cardiac output measurements, evaluation of patient&# 39;s response to treatment, examination of patient, obtaining history from patient or surrogate, ordering and performing treatments and interventions, ordering and review of laboratory studies, ordering and review of radiographic studies, pulse oximetry, re-evaluation of patient's condition and review of old charts. This time was independent of all procedures performed. Cristi Babin Antibiotics given: Yes Counseled pt/family regarding: lab results, diagnosis, need for follow-up - Departure Departure Disposition: Transfer Clinical Impression: Bilateral pneumonia, Acute renal failure, Influenza A, Severe sepsis, Suspected COVID-19 virus infection Condition: Stable Critical Care Time: Yes Critical Care Time(excluding separately billable procedures): Critical 30-74 mins Referrals: SHANE GUTIERREZ [Primary Care Provider] -
[2019-10-30] MEDS ORDERED: Sodium Chloride 0.9% 1000 ML 1,000 ML ONE ×2 (13:22→14:27)
[2019-10-30] MEDS ORDERED: Zofran 4 MG/2 ML VIAL ONE (13:22)
[2019-10-30] MEDS ORDERED: BABY ASPIRIN 81 MG CHEW ONE (13:22)
[2019-10-30 13:44] LABS: Hematocrit 25.9 % (35-47); Hemoglobin 8.8 gm/dl (12.0-16.0); Mean Cell Volume 98.9 fl (78-100); Mean Corpuscular Hemoglobin 33.6 pg (26-32); Mean Platelet Volume 12.5 fl (7.5-11.0); Platelet Count 38 K/mm3 (150-450); Red Blood Count 2.62 M/mm3 (4.1-5.4); Red Cell Distribution Width 12.4 % (11.5-14.0)
[2019-10-30 13:47] LABS: INFLUENZA B NEGATIVE (NEGATIVE); RESPIRATORY SYNCTIAL VIRUS NEGATIVE (Negative)
[2019-10-30 13:49] LABS: INFLUENZA A POSITIVE (NEGATIVE); INR 1.19 (0.8-3.0); PROTIME 13.5 SECONDS (9.95-12.35)
[2019-10-30 13:50] LABS: White Blood Count 0.9 K/mm3 (4.0-10.5)
[2019-10-30 13:51] LABS: PTT 28.5 SECONDS (25.3-37.0)
[2019-10-30 14:19] LABS: ANION GAP 19.4 MEQ/L (5-15); BILIRUBIN,TOTAL 1.2 mg/dL (0.2-1.3); Calcium 8.9 mg/dL (8.4-10.2); Creatinine 1 4.58 mg/dL (0.52-1.04)
[2019-10-30 14:22] LABS: Potassium 2.5 mmol/L (3.5-5.1)
[2019-10-30] MEDS ORDERED: Vancomycin 1GM/ Ns 250ML*** 1 GM/250 ML IVPB IV ONE (14:54)
[2019-10-30] MEDS ORDERED: Maxipime 2 GM ONE (14:57)
[2019-10-30] MEDS ORDERED: Sodium Chloride 0.9% 100 ML IVPB 100 ML IV ONE (15:00)
[2019-10-30] MEDS ORDERED: Maxipime 2 GM IV ONE (15:00)
[2019-10-30] MEDS ORDERED: Vancomycin 1GM/ Ns 250ML*** 250 ML IV ONE (15:21)
[2019-10-30 16:03] LABS: Total Cells Counted 100
[2019-10-30 16:33] LABS: BAND 2 % (0.0-2.0); Eosinophil 4 % (0.00-3.0); Lymphocytes 32 % (24-44); Monocyte 14 % (0.0-12.0); Neutrophils 48 % (36.0-66.0)
[2019-10-30 16:34] LABS: Polychromasia 1+
[2019-10-30 16:36] LABS: Spherocyte 1+
[2019-10-30 16:39] VITALS: BP 112/69; PULSE 84; O2SAT 97
[2019-10-30 16:40] LABS: Platelet Estimate DECREASED (NORMAL)
--- NOTE | 2019-10-30 19:03 | XRAY ---
Indication: Pneumonia, cough, influenza. Comparison: August 21, 2018. Portable chest demonstrates new left mid to lower lung hazy airspace disease with tiny effusion. Remaining heart, lungs, and bony thorax unremarkable again with incidental left base calcified granuloma, left Port-A-Cath, and old right 5 rib fracture. Comment: Preliminary interpretation was made by [facility]. No critical discrepancy.
== END 2019-10-30 16:38 | disposition short-term general hospital (02) ==
LOC: ED 12:26
DX: J18.9 Pneumonia, unspecified organism (principal); N17.9 Acute kidney failure, unspecified; J09.X2 Influenza due to identified novel influenza A virus with other respiratory manifestations; A41.9 Sepsis, unspecified organism
CPT/HCPCS: 36000; 36415; 71045; 80053; 83880; 84484; 85025; 85610; 85730; 87631; 87651; 93005; 93041; 94640; 94760; 96360; 96361; 96365; 96374; 99285; 99291; J0692; J2405; J3370; A9270-GY

== ENCOUNTER 2020-01-01 16:25 | Emergency (ER) | payer MEDICARE ==
--- NOTE | 2020-01-01 17:05 | ERPHSYRPT ---
- History of Present Illness Time Seen by Provider: 01/01/20 16:50 Source: patient Exam Limitations: no limitations Patient Subjective Stated Complaint: pt here for sores to mouth for 11 days now , she states it started after she bite the inside of her cheeck, pt was placed on antibotics and now she states she has more sores Triage Nursing Assessment: pt alert, walked in, resp easy, skin w/d/p,pt has sores to right side of mouth and on tongue, Physician History: 49 years old female presented in the ER with sores on the right cheek and tongue for almost 11 days. Patient report initially she bit her mucosa and started having some soreness in the buccal mucosa and later on started to have sores on the tongue as well. Patient was seen at primary care and currently taking Augmentin but does not seem helping. She is complaining of dull to sharp moderate intensity pain with movements of tongue and touching vehicle mucosa. No fever or chills reported, no gum swelling. Timing/Duration: day(s) (11), sudden, worse Severity: moderate Modifying Factors: Improves With: movement Associated Symptoms: denies symptoms Allergies/Adverse Reactions: rituximab [From Rituxan] Allergy (Intermediate, Verified 01/01/20 16:30) Sore Throat Home Medications: Famotidine 20 mg [Pepcid 20 MG] 20 mg PO DAILY 08/21/17 [History] Iron 18 mg PO BID 08/21/17 [History] Cyanocobalamin (Vitamin B-12) [Vitamin B12] 2,500 mcg PO DAILY 11/08/17 [History ] Hydrocodone Bit/Acetaminophen [[place] 5-325 Tablet] 1 each PO Q6H PRN 11/08/17 [ History] Hx Tetanus, Diphtheria Vaccination/Date Given: No Hx Influenza Vaccination/Date Given: No Hx Pneumococcal Vaccination/Date Given: No Immunizations Up to Date: Yes Travel Risk - International Travel Have you traveled outside of the country in past 3 weeks: No Have you or anyone close to you been diagnosed with or: No Do your reside in a community with a known COVID-19 case?: Yes If Yes where:: [place] - Coronavirus Screening Has patient experienced Coronavirus symptoms: No - Review of Systems Constitutional: No Symptoms Eyes: No Symptoms Ears, Nose, & Throat: Mouth Swelling, Painful Swallowing Respiratory: No Symptoms Cardiac: No Symptoms Abdominal/Gastrointestinal: No Symptoms Musculoskeletal: No Symptoms Skin: No Symptoms Neurological: No Symptoms Psychological: No Symptoms Endocrine: No Symptoms Hematologic/Lymphatic: No Symptoms - Past Medical History Pertinent Past Medical History: Yes Neurological History: Seizures, Other ENT History: No Pertinent History Cardiac History: Deep Vein Thrombosis Respiratory History: Pulmonary Embolism Endocrine Medical History: No Pertinent History Musculoskeletal History: No Pertinent History GI Medical History: Gallbladder Disease History: No Pertinent History Psycho-Social History: No Pertinent History Female Reproductive Disorders: No Pertinent History Other Medical History: Childhood seizures. nonhodgkins in remission - Past Surgical History Past Surgical History: Yes Neuro Surgical History: No Pertinent History Cardiac: No Pertinent History Respiratory: No Pertinent History Gastrointestinal: Cholecystectomy Genitourinary: No Pertinent History Musculoskeletal: No Pertinent History Female Surgical History: Tubal Ligation Other Surgical History: bx left leg - Social History Smoking Status: Former smoker Exposure to second hand smoke: No Drug Use: none Patient Lives Alone: No - Female History Hx Last Menstrual Period: post Hx Now: No - Nursing Vital Signs Nursing Vital Signs: Initial Vital Signs Temperature 97.5 F 01/01/20 16:30 Pulse Rate 96 H 01/01/20 16:30 Respiratory Rate 18 01/01/20 16:30 Blood Pressure 131/94 01/01/20 16:30 O2 Sat by Pulse Oximetry 96 01/01/20 16:30 Pain Scale Pain Intensity 9 - Physical Exam General Appearance: no apparent distress Eye Exam: eyes nml inspection Ears, Nose, Throat Exam: pharynx normal, moist mucous membranes, other (Patches of white curd on the right buccal mucosa and right side of the tongue. No erythema or swelling around.) Neck Exam: normal inspection, supple Respiratory Exam: normal breath sounds, lungs clear Cardiovascular Exam: regular rate/rhythm, normal heart sounds Extremity Exam: normal range of motion Neurologic Exam: alert, oriented x 3, cooperative Skin Exam: normal color SpO2 Interpretation: normal SpO2: 96 O2 Delivery: Room Air - Course Nursing assessment & vital signs reviewed: Yes - Progress Progress: unchanged Progress Note: 01/01/20 she is given Magic mouthwash and fluconazole. Recommended outpatient follow-up. Counseled pt/family regarding: diagnosis, need for follow-up - Departure Departure Disposition: Home Clinical Impression: Oral ulcer Condition: Stable Critical Care Time: No Referrals: SHANE GUTIERREZ [Primary Care Provider] - Instructions: Mouth Sores (DC) Additional Instructions: Use Magic mouthwash 4 times daily. Follow-up with primary care for reevaluation. Return to ER for any worsening. Take Tylenol/ibuprofen as needed. Prescriptions: Fluconazole [Diflucan] 200 mg PO CLARIFY #1 tablet Mag Hydrox/Alh/Smc/Dpha/Lido [First-Mouthwash Blm Suspension] 30 ml MM QID 5 Days mouthwash
[2020-01-01 17:15] VITALS: BP 112/84; PULSE 92
[2020-01-01 22:42] VITALS: O2SAT 96
[2020-01-02] MEDS ORDERED: Zofran 4 MG/2 ML VIAL ONE (19:37)
[2020-01-02] MEDS ORDERED: SUBLIMAZE 100 MCG/2 ML ONE (19:37)
== END 2020-01-01 17:27 | disposition home or self-care (01) ==
LOC: ED 16:25
DX: K12.1 Other forms of stomatitis (principal); R07.0 Pain in throat; R13.10 Dysphagia, unspecified; Z85.72 Personal history of non-Hodgkin lymphomas
CPT/HCPCS: 99283; J2405; J3010